=== PATIENT | male | born 1940 | race Caucasian/White ===

== ENCOUNTER 2023-09-18 16:50 | Observation (INO) ==
[2023-09-18 17:09] VITALS: TEMP 97.9
--- NOTE | 2023-09-18 18:13 | XRay Report ---
XR chest 1V portable CLINICAL HISTORY: Chest pain, nonspecific COMPARISON STUDY: Chest radiograph August 05, 2008. FINDINGS: Lung volumes are mildly diminished. No pneumothorax or pleural effusion is present. There i s mild enlargement of the cardiac silhouette. No consolidation is present. There is no evidence for p ulmonary edema. A small hiatal hernia is present. IMPRESSION: No acute cardiopulmonary findings. ACT 112: Negative or not required by law. Electronically signed by: Silver Garcia M.D. 09/18/2023 6:12 PM
[2023-09-18 18:20] LABS: Basophils # (auto) 0.02 K/uL (0.00-0.20); Basophils % (auto) 0.3 %; Eosinophils # (auto) 0.15 K/uL (0.00-0.50); Eosinophils % (auto) 2.5 %; Hematocrit (blood only) 43.5 % (42.0-52.0); Hemoglobin 14.8 g/dl (14.0-18.0); Immature Granulocytes # (auto) 0.01 K/uL (0.01-0.20); Immature Granulocytes % (auto) 0.2 %; Lymphocytes # (auto) 0.94 K/uL (1.20-3.40); Lymphocytes % (auto) 15.6 %; Mean Corpuscular Hemoglobin 30.8 pg (25.0-34.0); Mean Corpuscular Volume 90.6 fL (80.0-100.0); Mean Platelet Volume 9.3 fL (9.4-12.4); Neutrophils % (auto) 71.4 %; Platelet Count 297 K/uL (130-400); RDW Coefficient of Variation 12.7 % (11.5-14.5); White Blood Count 6.02 K/ul (4.8-10.8)
[2023-09-18 18:35] LABS: INR 0.9 (0.9-1.1); Partial Thromboplastin Ratio 0.9; Partial Thromboplastin Time 26 Seconds (21-31); Prothrombin Time 10.3 Seconds (9.0-12.0)
--- NOTE | 2023-09-18 18:45 | CT Scan Report ---
CT OF THE HEAD WITHOUT CONTRAST CLINICAL HISTORY: Dizzy COMPARISON STUDY: Head CT August 14, 2023. CT DOSE: 625.8 mGy.cm TECHNIQUE: Helical axial images of the head were obtained without IV contrast. Automated exposure con trol was utilized for the study. A dose lowering technique was utilized adhering to the principles o f ALARA. FINDINGS: No acute intracranial hemorrhage, midline shift or mass effect is present. The ventricular system is unremarkable. The basal cisterns are patent. No extra-axial collections are present. There are no findings to suggest acute dural sinus thrombosis or acute territorial infarct. No significant calvarial abnormalities are present. Visualized portions of the sinuses and mastoid air cells are esequiel ar. IMPRESSION: No acute intracranial findings. ACT 112: Negative or not required by law. Electronically signed by: Silver Garcia M.D. 09/18/2023 6:43 PM
[2023-09-18 19:05] LABS: Albumin Globulin Ratio 1.4 (0.9-2); Albumin Level 4.2 gm/dl (3.4-5.0); BUN Creatinine Ratio 16.7 (10-20); Bilirubin,Total 0.5 mg/dl (0.2-1.0); Calcium 9.1 mg/dl (8.6-10.3); Creatinine Clr Calc Pharmacy 56.4 ml/min; Est GFR (African American) 85.6 ml/min; Est GFR (Non-African American) 73.8 ml/min; Globulin 3.1 gm/dl (2.5-4.0); Magnesium 1.9 mg/dl (1.7-2.4); Potassium 4.1 mmol/L (3.5-5.1); Total Protein 7.3 gm/dl (6.0-8.3)
[2023-09-18 19:10] LABS: Troponin I High Sensitivity 16.2 pg/ml (0-20)
[2023-09-18 19:19] LABS: Thyroid Stimulating Hormone 0.598 uIu/ml (0.300-4.500)
--- NOTE | 2023-09-18 19:50 | Emergency Department Note ---
Impression & Plan Exertional shortness of breath, Elevated troponin, Lightheadedness ED Provider Note NAME: JACQUES SCHWARTZ AGE: 83 SEX: M : 1940 ARRIVES VIA: Walk-In INFORMANT: Patient ED PROVIDER(S): Amando Silva DO CHIEF COMPLAINT: shortness of breath HPI: Patient is an 83-year-old male who presents the ER for shortness of breath. He notes he had an issue earlier today around 12:00. He had paresthesias in his bilateral upper and lower extremities. This abated after about 1/2-hour. Then around 330 they are walking and he became significantly dyspneic on typical walk. Notes he had to stop on 2 separate occasions. Denies any chest pain, arm pain, or jaw pain. No belly pain. No nausea, vomiting, or diarrhea. He had recent right upper extremity surgery about 2 weeks ago and has been in a splint. Denies any swelling, tingling, or numbness. He had the stitches out today. ADDITIONAL HISTORY OBTAINED: Per HPI Chronic Medical/Social Conditions Affecting Care: Per HPI PAST MEDICAL HISTORY:See Below PAST SURGICAL HISTORY:See Below FAMILY HISTORY:See Below SOCIAL HISTORY:See Below HOME MEDICATIONS:See Below ALLERGIES:See Below VITALS:See Below PHYSICAL EXAMINATION: GENERAL: Sitting up in bed, alert, well appearing, well nourished, no distress, non-toxic EYE EXAM: normal conjunctiva. PERRL and EOM's grossly intact. OROPHARYNX: mucous membranes are moist NECK: supple, no nuchal rigidity, no adenopathy, non-tender LUNGS: Clear to auscultation. Normal chest wall mechanics HEART: no murmurs, S1 normal and S2 normal ABDOMEN: abdomen soft, non-tender, normo-active bowel sounds, no masses, no rebound or guarding. BACK: Back is symmetrical on inspection and there is no deformity, no midline tenderness, no CVA tenderness. SKIN: no rashes and no bruising UPPER EXTREMITIES: Right upper extremity in sling. LOWER EXTREMITIES: No pitting edema. Calves are equal bilaterally NEURO EXAM: Normal sensorium, cranial nerves II-XII grossly intact, normal speech, no gross weakness of arms, no gross weakness of legs. MEDICAL DECISION MAKING: Patient is an 83-year-old male who presents ER for above-stated complaint. IV was established blood was obtained. Labs show no significant leukocytosis or anemia. INR unremarkable. BMP along with LFTs bilirubin was unremarkable. Troponin trended up to 21. Lipase was normal. TSH unremarkable. Chest x-ray was negative. CT head and angio of the chest was negative. Was updated bedside and discussed with the hospitalist admitted for further workup. He was here for an extensive period of time as he was in the waiting room. Consults/Care Managements Discussions: Per [facility] Triage Nursing notes reviewed. Limited review of prior medical records performed Vital Signs: reviewed and remarkable for no significant abnormalities Differential diagnosis: Differential diagnoses includes but is not limited to pneumonia, bronchitis, COPD/Asthma exacerbation, pneumothorax, pulmonary embolism, congestive heart failure, acute coronary syndrome ER treatment provided: See below Diagnostics interpreted by me include EKG and cardiac monitoring as listed below: -Cardiac Monitoring: An order was placed for continuous cardiac monitoring. The monitor shows a rate of 80 with sinus rhythm. -ECG: Sinus rhythm rate 84 Normal axis No PVCs QTc 411 First-degree AV block -Laboratory studies:Interpreted by me as stated above in MDM and shown below. 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 Daughter No problems noted. Daughter No problems noted. Son No problems noted. Son No problems noted. Son No problems noted. 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 [employer] Feels Safe at Home: Yes Allergies Allergies Allergy/AdvReac Type Severity Reaction Status Date / Time TETANUS Allergy Unknown Unknown Uncoded 09/29/19 15:26 Home Meds Home Medications Medication Instructions Recorded Confirmed pantoprazole 20 mg tablet,delayed 20 mg PO DAILY 08/04/18 09/18/23 release (Protonix) mirtazapine 15 mg tablet 15 mg PO HS 09/05/18 09/18/23 avelumab 20 mg/mL intravenous See Rx Instructions .Route .COMPLEX 09/29/19 09/18/23 solution cholecalciferol (vitamin D3) 25 25 mcg PO DAILY 09/18/23 09/18/23 mcg (1,000 unit) capsule (Vitamin D3) losartan 25 mg tablet 25 mg PO DAILY 09/18/23 09/18/23 omega-3 fatty acids-vitamin E 1 cap PO DAILY 09/18/23 09/18/23 1,000 mg capsule rosuvastatin 5 mg tablet 5 mg PO DAILY 09/18/23 09/18/23 sildenafil 50 mg tablet 50 mg PO 1XD PRN Sexual Activity 09/18/23 09/18/23 Results & Data (ED) Vital Signs Vital Signs - 24 hr 09/18/23 17:03 09/18/23 17:13 09/18/23 18:55 Temperature 36.6 C Temperature Source Skin Pulse Rate 85 Pulse Rate [Right Finger] 88 Respiratory Rate 20 16 Respiratory Effort / Characteristics Non-Labored Spontaneous Non-Labored Spontaneous Non-Labored Respiratory Depth Normal Normal Normal Respiratory Pattern Regular Regular Blood Pressure 138/80 Blood Pressure [Right Arm] 139/90 Blood Pressure Mean 99 Blood Pressure Mean [Right Arm] 106 Pulse Oximetry 93 94 Oxygen Delivery Method Room Air Room Air Room Air Sepsis Recent Fever Within 48 Hours No Sepsis New/Unexplained Change in Mental Status N/A Sepsis Action Taken by Nursing No Action Required 09/18/23 20:31 09/18/23 20:31 09/18/23 20:32 Temperature Temperature Source Pulse Rate 78 73 Pulse Rate [Right Finger] Respiratory Rate 24 Respiratory Effort / Characteristics Respiratory Depth Respiratory Pattern Blood Pressure 145/95 H Blood Pressure [Right Arm] Blood Pressure Mean 110 Blood Pressure Mean [Right Arm] Pulse Oximetry Oxygen Delivery Method Sepsis Recent Fever Within 48 Hours Sepsis New/Unexplained Change in Mental Status Sepsis Action Taken by Nursing 09/18/23 20:32 09/18/23 20:40 09/18/23 20:48 Temperature Temperature Source Pulse Rate 72 71 Pulse Rate [Right Finger] Respiratory Rate 17 19 Respiratory Effort / Characteristics Respiratory Depth Respiratory Pattern Blood Pressure Blood Pressure [Right Arm] Blood Pressure Mean Blood Pressure Mean [Right Arm] Pulse Oximetry Oxygen Delivery Method Room Air Sepsis Recent Fever Within 48 Hours Sepsis New/Unexplained Change in Mental Status Sepsis Action Taken by Nursing 09/18/23 20:48 09/18/23 20:50 09/18/23 21:00 Temperature Temperature Source Pulse Rate 73 Pulse Rate [Right Finger] Respiratory Rate 17 Respiratory Effort / Characteristics Respiratory Depth Respiratory Pattern Blood Pressure 133/81 Blood Pressure [Right Arm] Blood Pressure Mean 95 Blood Pressure Mean [Right Arm] Pulse Oximetry Oxygen Delivery Method Room Air Sepsis Recent Fever Within 48 Hours Sepsis New/Unexplained Change in Mental Status Sepsis Action Taken by Nursing 09/18/23 21:00 09/18/23 21:10 09/18/23 21:20 Temperature Temperature Source Pulse Rate 64 63 68 Pulse Rate [Right Finger] Respiratory Rate 21 20 20 Respiratory Effort / Characteristics Respiratory Depth Respiratory Pattern Blood Pressure Blood Pressure [Right Arm] Blood Pressure Mean Blood Pressure Mean [Right Arm] Pulse Oximetry Oxygen Delivery Method Sepsis Recent Fever Within 48 Hours Sepsis New/Unexplained Change in Mental Status Sepsis Action Taken by Nursing 09/18/23 21:30 09/18/23 21:30 09/18/23 23:00 Temperature Temperature Source Pulse Rate 67 65 Pulse Rate [Right Finger] Respiratory Rate 17 20 Respiratory Effort / Characteristics Respiratory Depth Respiratory Pattern Blood Pressure 123/78 Blood Pressure [Right Arm] Blood Pressure Mean 91 Blood Pressure Mean [Right Arm] Pulse Oximetry Oxygen Delivery Method Sepsis Recent Fever Within 48 Hours Sepsis New/Unexplained Change in Mental Status Sepsis Action Taken by Nursing 09/18/23 23:42 09/19/23 00:00 09/19/23 01:00 Temperature Temperature Source Pulse Rate 80 72 67 Pulse Rate [Right Finger] Respiratory Rate 17 19 23 Respiratory Effort / Characteristics Respiratory Depth Respiratory Pattern Blood Pressure 154/88 H 150/80 H Blood Pressure [Right Arm] Blood Pressure Mean 110 103 Blood Pressure Mean [Right Arm] Pulse Oximetry 95 Oxygen Delivery Method Room Air Sepsis Recent Fever Within 48 Hours Sepsis New/Unexplained Change in Mental Status Sepsis Action Taken by Nursing Laboratory Data 09/18/23 17:56 09/18/23 17:56 Lab Results 09/18/23 09/18/23 Range/Units 17:56 20:23 WBC 6.02 (4.8-10.8) K/ul RBC 4.80 (4.70-6.10) M/uL Hgb 14.8 (14.0-18.0) g/dl Hct 43.5 (42.0-52.0) % MCV 90.6 (80.0-100.0) fL MCH 30.8 (25.0-34.0) pg MCHC 34.0 (32.0-36.0) g/dL RDW Std Deviation 42.0 (36.4-46.3) fL RDW Coeff of Senia 12.7 (11.5-14.5) % Plt Count 297 (130-400) K/uL MPV 9.3 L (9.4-12.4) fL Immature Gran % (Auto) 0.2 % Neut % (Auto) 71.4 % Lymph % (Auto) 15.6 % [place] % (Auto) 10.0 % Eos % (Auto) 2.5 % Baso % (Auto) 0.3 % Neut # (Auto) 4.30 (1.40-6.50) K/uL Lymph # (Auto) 0.94 L (1.20-3.40) K/uL [place] # (Auto) 0.60 H (0.11-0.59) K/uL Eos # (Auto) 0.15 (0.00-0.50) K/uL Baso # (Auto) 0.02 (0.00-0.20) K/uL Immature Gran # (Auto) 0.01 (0.01-0.20) K/uL PT 10.3 (9.0-12.0) Seconds INR 0.9 (0.9-1.1) APTT 26 (21-31) Seconds PTT Ratio 0.9 Sodium 139 (136-145) mmol/L Potassium 4.1 (3.5-5.1) mmol/L Chloride 107 (98-107) mmol/L Carbon Dioxide 25 (21-32) mmol/L Anion Gap 7 (3-11) BUN 16 (6-23) mg/dl Creatinine 0.96 (0.6-1.4) mg/dl Est Cr Clr Drug Dosing 56.4 ml/min Est GFR ( Amer) 85.6 ml/min Est GFR (Non-Af Amer) 73.8 ml/min BUN/Creatinine Ratio 16.7 (10-20) Glucose 116 H (70-99(Fasting)) mg/dl Calcium 9.1 (8.6-10.3) mg/dl Magnesium 1.9 (1.7-2.4) mg/dl Total Bilirubin 0.5 (0.2-1.0) mg/dl AST 17 (13-39) U/L ALT 12 (7-52) U/L Alkaline Phosphatase 117 H (34-104) U/L Troponin I High Sens 16.2 21.1 H (0-20) pg/ml Total Protein 7.3 (6.0-8.3) gm/dl Albumin 4.2 (3.4-5.0) gm/dl Globulin 3.1 (2.5-4.0) gm/dl Albumin/Globulin Ratio 1.4 (0.9-2) Lipase 37 (11-82) U/L TSH 0.598 (0.300-4.500) uIu/ml Administered Medications Discontinued Medications Ioversol (Optiray 320 125ml) 118 ml IV ONCE ONE Stop: 09/18/23 20:19 Last Admin: 09/18/23 20:18 Dose: 118 ml Documented By: [facility] Data Radiologist's Impression: Chest X-Ray 09/18/23 17:09 XR chest 1V portable CLINICAL HISTORY: Chest pain, nonspecific COMPARISON STUDY: Chest radiograph August 05, 2008. FINDINGS: Lung volumes are mildly diminished. No pneumothorax or pleural effusion is present. There is mild enlargement of the cardiac silhouette. No consolidation is present. There is no evidence for pulmonary edema. A small hiatal hernia is present. IMPRESSION: No acute cardiopulmonary findings. ACT 112: Negative or not required by law. Electronically signed by: Silver Garcia M.D. 09/18/2023 6:[address] 09/18/23 17:12 CT OF THE HEAD WITHOUT CONTRAST CLINICAL HISTORY: Dizzy COMPARISON STUDY: Head CT August 14, 2023. CT DOSE: 625.8 mGy.cm TECHNIQUE: Helical axial images of the head were obtained without IV contrast. Automated exposure control was utilized for the study. A dose lowering technique was utilized adhering to the principles of ALARA. FINDINGS: No acute intracranial hemorrhage, midline shift or mass effect is present. The ventricular system is unremarkable. The basal cisterns are patent. No extra-axial collections are present. There are no findings to suggest acute dural sinus thrombosis or acute territorial infarct. No significant calvarial abnormalities are present. Visualized portions of the sinuses and mastoid air cells are clear. IMPRESSION: No acute intracranial findings. ACT 112: Negative or not required by law. Electronically signed by: Silver Garcia M.D. 09/18/2023 6:43 PM Chest CTA 09/18/23 19:46 Exam(s): CTA CHEST IV Amt: 118 cc opti 320 EXAM: CT Angiography Chest With Intravenous Contrast CLINICAL HISTORY: Reason for exam: sob post op. TECHNIQUE: Axial computed tomographic angiography images of the chest with intravenous contrast. CTDI is 22.4 mGy and DLP is 801.82 mGy-cm. Automated exposure control was utilized for the study. A dose lowering technique was utilized adhering to the principles of ALARA. MIP reconstructed images were created and reviewed. COMPARISON: No relevant prior studies available. FINDINGS: Pulmonary arteries: Unremarkable. No pulmonary embolism. Aorta: Atherosclerotic changes of the aorta. No thoracic aortic aneurysm. Lungs: Unremarkable. No mass. No consolidation. Pleural space: Unremarkable. No significant effusion. No pneumothorax. Heart: Unremarkable. No cardiomegaly. No significant pericardial effusion. No evidence of RV dysfunction. Bones/joints: Degenerative changes of the spine. No acute fracture. No dislocation. Soft tissues: Unremarkable. Lymph nodes: Unremarkable. No enlarged lymph nodes. Gallbladder and bile ducts: Cholecystectomy. IMPRESSION: No acute findings in the visualized arteries of the chest. Electronically signed by: Marquez Reed MD 09/18/23 20:53 PM Discharge Plan Visit Data Chief Complaint: Shortness of Breath/Dyspnea Stated Complaint: LIGHTHEADED, TINGLING ARMS AND LEGS, SOB ED Provider: Amando Silva Discharge Problem: Exertional shortness of breath, Elevated troponin, Lightheadedness Forms Stand Alone Forms: [facility] Prescriptions Prescriptions: No Action pantoprazole [Protonix] 20 mg tablet,delayed release (DR/EC) 20 mg PO DAILY avelumab 20 mg/mL solution See Rx Instructions .ROUTE .COMPLEX Rx Instructions: Patient states he receives injection every 2 weeks mirtazapine 15 mg Tablet 15 mg PO HS sildenafil 50 mg tablet 50 mg PO 1XD PRN (Reason: Sexual Activity) losartan 25 mg tablet 25 mg PO DAILY rosuvastatin 5 mg tablet 5 mg PO DAILY cholecalciferol (vitamin D3) [Vitamin D3] 25 mcg (1,000 unit) Capsule 25 mcg PO DAILY Fish Oil 1,000 mg Capsule 1 cap PO DAILY Referrals Referrals: Alex Prater MD [Primary Care Provider] - Discharge Problem:
[2023-09-18] MEDS: OPTIRAY 320 125ml IV ONE (20:18)
--- NOTE | 2023-09-18 20:54 | CT Scan Report ---
Exam(s): CTA CHEST IV Amt: 118 cc opti 320 EXAM: CT Angiography Chest With Intravenous Contrast CLINICAL HISTORY: Reason for exam: sob post op. TECHNIQUE: Axial computed tomographic angiography images of the chest with intravenous contrast. CTDI is 22.4 mGy and DLP is 801.82 mGy-cm. Automated exposure control was utilized for the study. A dose lowering technique was utilized adhering to the principles of ALARA. MIP reconstructed images were created and reviewed. COMPARISON: No relevant prior studies available. FINDINGS: Pulmonary arteries: Unremarkable. No pulmonary embolism. Aorta: Atherosclerotic changes of the aorta. No thoracic aortic aneurysm. Lungs: Unremarkable. No mass. No consolidation. Pleural space: Unremarkable. No significant effusion. No pneumothorax. Heart: Unremarkable. No cardiomegaly. No significant pericardial effusion. No evidence of RV dysfunction. Bones/joints: Degenerative changes of the spine. No acute fracture. No dislocation. Soft tissues: Unremarkable. Lymph nodes: Unremarkable. No enlarged lymph nodes. Gallbladder and bile ducts: Cholecystectomy. IMPRESSION: No acute findings in the visualized arteries of the chest. Electronically signed by: Marquez Reed MD 09/18/23 20:53 PM
--- NOTE | 2023-09-19 02:37 | History & Physical Report ---
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 Patient states in the morning around noon he was in the [employer] when he noticed some dizziness and tingling in his hands when he went back home. Later he went to the doctor's office to remove stitches of recent surgery on his right upper extremity. In the evening he tried to walk when he noticed dyspnea on exertion and had to stop couple of times when he decided to come to the hospital. Currently resting he is asymptomatic. Denies any chest pain. No fevers. No cough. No blurred vision. No runny nose or sore throat. No nausea. No abdominal pain. Normal bowel and bladder movements. Currently hemodynamically stable. Dyspnea on exertion Episode of dizziness No chest pain CTA chest scan and CT head are unremarkable Initial troponin 16 and repeat is 21 EKG no acute findings Currently asymptomatic Will follow serial cardiac enzymes and echo Will keep him n.p.o. Monitoring telemetry Consult cardiology in a.m. 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 Patient states in the morning around noon he was in the [employer] when he noticed some dizziness and tingling in his hands when he went back home. Later he went to the doctor's office to remove stitches of recent surgery on his right upper extremity. In the evening he tried to walk when he noticed dyspnea on exertion and had to stop couple of times when he decided to come to the hospital. Currently resting he is asymptomatic. Denies any chest pain. No fevers. No cough. No blurred vision. No runny nose or sore throat. No nausea. No abdominal pain. Normal bowel and bladder movements. Currently hemodynamically stable. Past medical history. As mentioned above Past surgical history. Colonoscopy. EGD. Laparoscopic cholecystectomy. Needlepoint biopsy of prostate. Inguinal hernia repair. Social history. . Quit smoking 2001. Smoked half a pack a day for 20 years. No alcohol use. No drug use. Family history. Father had pneumonia. Mother had cancer. Allergies Allergy/AdvReac Type Severity Reaction Status Date / Time TETANUS Allergy Unknown Unknown Uncoded 09/29/19 15:26 Home Medications Medication Instructions Recorded Confirmed Type pantoprazole 20 mg tablet,delayed 20 mg PO DAILY 08/04/18 09/18/23 History release (Protonix) mirtazapine 15 mg tablet 15 mg PO HS 09/05/18 09/18/23 History avelumab 20 mg/mL intravenous See Rx Instructions .Route .COMPLEX 09/29/19 09/18/23 History solution cholecalciferol (vitamin D3) 25 25 mcg PO DAILY 09/18/23 09/18/23 History mcg (1,000 unit) capsule (Vitamin D3) losartan 25 mg tablet 25 mg PO DAILY 09/18/23 09/18/23 History omega-3 fatty acids-vitamin E 1 cap PO DAILY 09/18/23 09/18/23 History 1,000 mg capsule rosuvastatin 5 mg tablet 5 mg PO DAILY 09/18/23 09/18/23 History sildenafil 50 mg tablet 50 mg PO 1XD PRN Sexual Activity 09/18/23 09/18/23 History Past Med/Surg History Medical History (Updated 09/19/23 @ 01:21 by Amando Silva DO) History of brachytherapy 2012 at [facility] Zainab cell carcinoma Right Flank Hyperlipemia GERD (gastroesophageal reflux disease) Benign neoplasm of colon Ascending aortic aneurysm Allergic rhinitis Surgical History S/P cholecystectomy Status post Mohs surgery 2 surgeries on top of head History of back surgery 1994 H/O hernia repair Family History Father , age 78 Pneumonia Mother , age 79 Lymphoma Sister No problems noted. Daughter No problems noted. Daughter No problems noted. Son No problems noted. Son No problems noted. Son No problems noted. 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 ENT- oropharynx clear Neck- supple, no JVD. Lungs- clear to auscultation no wheezing or crackles. Heart- regular rhythm; no murmur, no gallop. Abdomen- normal bowel sounds, soft, nontender, no distension Extremities- no pretibial edema, no erythema seen. Neuro- alert, oriented PERRL, no facial palsy; no dysarthria; moves extremities. Results & Data Results & Data Vital Signs (Past 12 Hours) Vital Signs Temp Pulse Pulse Resp BP BP Pulse Ox 09/19/23 02:11 63 09/19/23 01:00 67 23 09/19/23 00:00 72 19 150/80 H 09/18/23 23:42 80 17 154/88 H 95 09/18/23 23:00 65 20 09/18/23 21:30 67 17 09/18/23 21:30 123/78 09/18/23 21:20 68 20 09/18/23 21:10 63 20 09/18/23 21:00 64 21 09/18/23 21:00 133/81 09/18/23 20:50 73 17 09/18/23 20:48 09/18/23 20:48 09/18/23 20:40 71 19 09/18/23 20:32 72 17 09/18/23 20:32 145/95 H 09/18/23 20:31 73 09/18/23 20:31 78 24 09/18/23 18:55 88 16 139/90 94 09/18/23 17:13 09/18/23 17:03 36.6 C 85 20 138/80 93 O2 Del Method 09/19/23 02:11 09/19/23 01:00 09/19/23 00:00 09/18/23 23:42 Room Air 09/18/23 23:00 09/18/23 21:30 09/18/23 21:30 09/18/23 21:20 09/18/23 21:10 09/18/23 21:00 09/18/23 21:00 09/18/23 20:50 09/18/23 20:48 Room Air 09/18/23 20:48 Room Air 09/18/23 20:40 09/18/23 20:32 09/18/23 20:32 09/18/23 20:31 09/18/23 20:31 09/18/23 18:55 Room Air 09/18/23 17:13 Room Air 09/18/23 17:03 Room Air Diagnostic Findings Laboratory Results WBC 6.02 K/ul (4.8-10.8) 09/18/23 17:56 RBC 4.80 M/uL (4.70-6.10) 09/18/23 17:56 Hgb 14.8 g/dl (14.0-18.0) 09/18/23 17:56 Hct 43.5 % (42.0-52.0) 09/18/23 17:56 MCV 90.6 fL (80.0-100.0) 09/18/23 17:56 MCH 30.8 pg (25.0-34.0) 09/18/23 17:56 MCHC 34.0 g/dL (32.0-36.0) 09/18/23 17:56 RDW Std Deviation 42.0 fL (36.4-46.3) 09/18/23 17:56 RDW Coeff of Senia 12.7 % (11.5-14.5) 09/18/23 17:56 Plt Count 297 K/uL (130-400) 09/18/23 17:56 MPV 9.3 fL (9.4-12.4) L 09/18/23 17:56 Immature Gran % (Auto) 0.2 % 09/18/23 17:56 Neut % (Auto) 71.4 % 09/18/23 17:56 Lymph % (Auto) 15.6 % 09/18/23 17:56 Spink % (Auto) 10.0 % 09/18/23 17:56 Eos % (Auto) 2.5 % 09/18/23 17:56 Baso % (Auto) 0.3 % 09/18/23 17:56 Neut # (Auto) 4.30 K/uL (1.40-6.50) 09/18/23 17:56 Lymph # (Auto) 0.94 K/uL (1.20-3.40) L 09/18/23 17:56 Spink # (Auto) 0.60 K/uL (0.11-0.59) H 09/18/23 17:56 Eos # (Auto) 0.15 K/uL (0.00-0.50) 09/18/23 17:56 Baso # (Auto) 0.02 K/uL (0.00-0.20) 09/18/23 17:56 Immature Gran # (Auto) 0.01 K/uL (0.01-0.20) 09/18/23 17:56 PT 10.3 Seconds (9.0-12.0) 09/18/23 17:56 INR 0.9 (0.9-1.1) 09/18/23 17:56 APTT 26 Seconds (21-31) 09/18/23 17:56 PTT Ratio 0.9 09/18/23 17:56 Sodium 139 mmol/L (136-145) 09/18/23 17:56 Potassium 4.1 mmol/L (3.5-5.1) 09/18/23 17:56 Chloride 107 mmol/L (98-107) 09/18/23 17:56 Carbon Dioxide 25 mmol/L (21-32) 09/18/23 17:56 Anion Gap 7 (3-11) 09/18/23 17:56 BUN 16 mg/dl (6-23) 09/18/23 17:56 Creatinine 0.96 mg/dl (0.6-1.4) 09/18/23 17:56 Est Cr Clr Drug Dosing 56.4 ml/min 09/18/23 17:56 Est GFR ( Amer) 85.6 ml/min 09/18/23 17:56 Est GFR (Non-Af Amer) 73.8 ml/min 09/18/23 17:56 BUN/Creatinine Ratio 16.7 (10-20) 09/18/23 17:56 Glucose 116 mg/dl (70-99(Fasting)) H 09/18/23 17:56 Calcium 9.1 mg/dl (8.6-10.3) 09/18/23 17:56 Magnesium 1.9 mg/dl (1.7-2.4) 09/18/23 17:56 Total Bilirubin 0.5 mg/dl (0.2-1.0) 09/18/23 17:56 AST 17 U/L (13-39) 09/18/23 17:56 ALT 12 U/L (7-52) 09/18/23 17:56 Alkaline Phosphatase 117 U/L (34-104) H 09/18/23 17:56 Troponin I High Sens 21.1 pg/ml (0-20) H 09/18/23 20:23 Total Protein 7.3 gm/dl (6.0-8.3) 09/18/23 17:56 Albumin 4.2 gm/dl (3.4-5.0) 09/18/23 17:56 Globulin 3.1 gm/dl (2.5-4.0) 09/18/23 17:56 Albumin/Globulin Ratio 1.4 (0.9-2) 09/18/23 17:56 Lipase 37 U/L (11-82) 09/18/23 17:56 TSH 0.598 uIu/ml (0.300-4.500) 09/18/23 17:56 Impressions Chest X-Ray 09/18/23 17:09 XR chest 1V portable CLINICAL HISTORY: Chest pain, nonspecific COMPARISON STUDY: Chest radiograph August 05, 2008. FINDINGS: Lung volumes are mildly diminished. No pneumothorax or pleural effusion is present. There is mild enlargement of the cardiac silhouette. No consolidation is present. There is no evidence for pulmonary edema. A small hiatal hernia is present. IMPRESSION: No acute cardiopulmonary findings. ACT 112: Negative or not required by law. Electronically signed by: Silver Garcia M.D. 09/18/2023 6:[address] 09/18/23 17:12 CT OF THE HEAD WITHOUT CONTRAST CLINICAL HISTORY: Dizzy COMPARISON STUDY: Head CT August 14, 2023. CT DOSE: 625.8 mGy.cm TECHNIQUE: Helical axial images of the head were obtained without IV contrast. Automated exposure control was utilized for the study. A dose lowering technique was utilized adhering to the principles of ALARA. FINDINGS: No acute intracranial hemorrhage, midline shift or mass effect is present. The ventricular system is unremarkable. The basal cisterns are patent. No extra-axial collections are present. There are no findings to suggest acute dural sinus thrombosis or acute territorial infarct. No significant calvarial abnormalities are present. Visualized portions of the sinuses and mastoid air cells are clear. IMPRESSION: No acute intracranial findings. ACT 112: Negative or not required by law. Electronically signed by: Silver Garcia M.D. 09/18/2023 6:43 PM Chest CTA 09/18/23 19:46 Exam(s): CTA CHEST IV Amt: 118 cc opti 320 EXAM: CT Angiography Chest With Intravenous Contrast CLINICAL HISTORY: Reason for exam: sob post op. TECHNIQUE: Axial computed tomographic angiography images of the chest with intravenous contrast. CTDI is 22.4 mGy and DLP is 801.82 mGy-cm. Automated exposure control was utilized for the study. A dose lowering technique was utilized adhering to the principles of ALARA. MIP reconstructed images were created and reviewed. COMPARISON: No relevant prior studies available. FINDINGS: Pulmonary arteries: Unremarkable. No pulmonary embolism. Aorta: Atherosclerotic changes of the aorta. No thoracic aortic aneurysm. Lungs: Unremarkable. No mass. No consolidation. Pleural space: Unremarkable. No significant effusion. No pneumothorax. Heart: Unremarkable. No cardiomegaly. No significant pericardial effusion. No evidence of RV dysfunction. Bones/joints: Degenerative changes of the spine. No acute fracture. No dislocation. Soft tissues: Unremarkable. Lymph nodes: Unremarkable. No enlarged lymph nodes. Gallbladder and bile ducts: Cholecystectomy. IMPRESSION: No acute findings in the visualized arteries of the chest. Electronically signed by: Marquez Reed MD 09/18/23 20:53 PM ECG Additional Comments: ECG. Sinus rhythm with marked sinus arrhythmia with first-degree AV block at rate of 84. Nonspecific T wave abnormalities. Code Status & VTE Plan VTE Prophylaxis Plan VTE Prophylaxis will be ordered: Yes
[2023-09-19] MEDS: ASPIRIN CHEW 324 MG PO STA (02:40)
[2023-09-19] MEDS ORDERED: ACETAMINOPHEN 325 MG TAB PO PRN (04:07)
[2023-09-19] MEDS ORDERED: NITROGLYCERIN SL 0.4 MG/TAB TAB SL PRN (04:07)
[2023-09-19] MEDS ORDERED: POLYETHYLENE (MIRALAX) 17 GM PACK PO PRN (04:07)
[2023-09-19 05:53] LABS: Basophils # (auto) 0.03 K/uL (0.00-0.20); Basophils % (auto) 0.5 %; Eosinophils # (auto) 0.15 K/uL (0.00-0.50); Eosinophils % (auto) 2.3 %; Hematocrit (blood only) 40.5 % (42.0-52.0); Hemoglobin 13.5 g/dl (14.0-18.0); Immature Granulocytes # (auto) 0.01 K/uL (0.01-0.20); Immature Granulocytes % (auto) 0.2 %; Lymphocytes # (auto) 1.17 K/uL (1.20-3.40); Lymphocytes % (auto) 18.3 %; Mean Corpuscular Hemoglobin 30.3 pg (25.0-34.0); Mean Corpuscular Hgb Conc 33.3 g/dL (32.0-36.0); Mean Corpuscular Volume 90.8 fL (80.0-100.0); Mean Platelet Volume 9.2 fL (9.4-12.4); Monocytes # (auto) 0.75 K/uL (0.11-0.59); Monocytes % (auto) 11.7 %; Platelet Count 260 K/uL (130-400); RDW Coefficient of Variation 12.8 % (11.5-14.5); RDW Standard Deviation 42.2 fL (36.4-46.3); Red Blood Count 4.46 M/uL (4.70-6.10); White Blood Count 6.41 K/ul (4.8-10.8)
[2023-09-19 06:01] LABS: BUN Creatinine Ratio 19.5 (10-20); Calcium 8.4 mg/dl (8.6-10.3); Creatinine Clr Calc Pharmacy 62.3 ml/min; Est GFR (African American) 93.8 ml/min; Est GFR (Non-African American) 80.9 ml/min; Magnesium 1.9 mg/dl (1.7-2.4); Potassium 3.8 mmol/L (3.5-5.1)
[2023-09-19 06:08] LABS: Troponin I High Sensitivity 18.9 pg/ml (0-20)
[2023-09-19] MEDS: PANTOprazole 40 MG TAB PO SCH (08:46)
[2023-09-19] MEDS: LOSARTAN POTASSIUM 25 MG TAB PO SCH (08:46)
[2023-09-19] MEDS: ROSUVASTATIN CALCIUM 5 MG TAB PO SCH (08:46)
[2023-09-19] MEDS: CHOLECALCIFEROL 25 MCG (1000 UNITS) TAB PO SCH (08:46)
--- NOTE | 2023-09-19 10:41 | Cardiology Consultation ---
Date of Consultation September 19, 2023 Assessment & Plan (1) Exertional shortness of breath: (2) Lightheadedness: Patient seen in cardiology consultation for an episode of exertional dyspnea prompting him to stop his walk 2 times yesterday. He underwent a CT angiogram in the emergency room which is negative for pulmonary embolism. Echocardiogram reveals normal biventricular chamber size and systolic function, with no regional wall motion abnormalities of the left ventricle. Patient has had serial high-sensitivity troponin measurements of 16.2, 21.1, and then 18.9 PG per mL. The upper limit of normal is 20 PG per mL and therefore the second measurement was just mildly elevated. EKG without acute ischemic changes, but the first-degree AV block noted on the initial EKG is consistent with underlying conduction system disease. The [place] interval was just over 300 ms, and has improved to 200 ms today. Patient with transient lightheadedness yesterday before the dyspnea, neither symptom has persisted at present. He demonstrated ability to walk in the emergency department well. Recommend proceeding with an exercise stress echocardiogram. He has a few weeks removed from his recent right arm surgery, but I do not think this will interfere with the stress test and will be cautious to not have him do anything that would result in an injury and postsurgical setback. Patient to continue losartan and rosuvastatin. History of Present Illness Attending Physician: Ivette Rea MD History of Present Illness Mr Etienne is an 83 year old male seen in cardiology consultation per the request of Dr Bowling for the evaluation of shortness of breath. Patient seen in the emergency room, [facility], accompanied by his spouse, Radha. The patient has previously followed with Dr. Owen of our practice for cardiac risk factor counseling. He had been found to have coronary artery calcification on a CT scan performed for the evaluation of [place] cell carcinoma which was treated at the [facility]. He also has a history of hypertension. He is therefore on rosuvastatin and losartan. He had recently undergone surgery to his right arm / elbow for a tendon repair and has been doing well recovering for the last few weeks. Yesterday at noon he had an episode where he transiently felt lightheaded and had some numbness in his arms and legs. He was standing at the time and did not feel like he was definitely going to pass out in the sensation subsided. He then went and had his sutures removed from his arm and did well. At about 4:00 he went for a walk and had to stop on two occasions due to shortness of breath without associated chest discomfort. The patient then presented to the emergency room for further assessment. He notes feeling well. He has not had any symptoms overnight last night. Allergies Allergy/AdvReac Type Severity Reaction Status Date / Time TETANUS Allergy Unknown Unknown Uncoded 09/29/19 15:26 Home Medications Medication Instructions Recorded Confirmed Type pantoprazole 20 mg tablet,delayed 20 mg PO DAILY 08/04/18 09/18/23 History release (Protonix) mirtazapine 15 mg tablet 15 mg PO HS 09/05/18 09/18/23 History avelumab 20 mg/mL intravenous See Rx Instructions .Route .COMPLEX 09/29/19 History solution cholecalciferol (vitamin D3) 25 25 mcg PO DAILY 09/18/23 09/18/23 History mcg (1,000 unit) capsule (Vitamin D3) losartan 25 mg tablet 25 mg PO DAILY 09/18/23 09/18/23 History omega-3 fatty acids-vitamin E 1 cap PO DAILY 09/18/23 09/18/23 History 1,000 mg capsule rosuvastatin 5 mg tablet 5 mg PO DAILY 09/18/23 09/18/23 History sildenafil 50 mg tablet 50 mg PO 1XD PRN Sexual Activity 09/18/23 09/18/23 History Patient History Medical History History of brachytherapy 2012 at [facility] [place] cell carcinoma Right Flank Hyperlipemia GERD (gastroesophageal reflux disease) Benign neoplasm of colon Ascending aortic aneurysm Allergic rhinitis Surgical History S/P cholecystectomy Status post Mohs surgery 2 surgeries on top of head History of back surgery 1994 H/O hernia repair Family History Father , age 78 Pneumonia Mother , age 79 Lymphoma Sister No problems noted. Daughter No problems noted. Daughter No problems noted. Son No problems noted. Son No problems noted. Son No problems noted. 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 [employer] Feels Safe at Home: Yes Safety Concerns: Feels Safe At This Time Review of Systems Review of Systems: All systems reviewed & are unremarkable except as noted in HPI & below Physical Exam Physical Exam: General: no acute distress and stated age Eyes: conjunctiva are pink and non-injected, sclera clear Neck: normal jugular venous pulse, no hepatojugular reflux Chest: normal shape and normal respiratory effort Lungs: clear to auscultation and percussion Cardiac Exam: - regular heart sounds, no murmurs, rubs, or gallops, no jugular venous distention Abdomen: abdomen soft, non-tender, no abnormal masses and no hepatosplenomegaly Musculoskeletal: no gait disturbance, no weakness, right arm is in a sling Extremities: no edema and no cyanosis Neuro:awake, conversant, follows commands, no focal motor deficits Psych: appropriate affect and insight. Results & Data Vital Signs (Past 12 Hours) Vital Signs Pulse Resp BP Pulse Ox Pulse Ox O2 Del Method O2 Del Method 09/19/23 07:37 74 09/19/23 06:00 70 14 128/72 09/19/23 05:00 73 13 134/85 09/19/23 04:07 96 Room Air 09/19/23 04:00 74 17 121/72 09/19/23 03:38 63 16 118/74 09/19/23 03:00 75 18 09/19/23 02:11 63 09/19/23 02:00 51 L 15 09/19/23 01:00 67 23 09/19/23 00:00 72 19 150/80 H 09/18/23 23:42 80 17 154/88 H 95 Room Air 09/18/23 23:00 65 20 Laboratory Results Cardiac Enzymes 09/18/23 09/18/23 09/19/23 Range/Units 17:56 20:23 05:19 AST 17 (13-39) U/L Troponin I High Sens 16.2 21.1 H 18.9 (0-20) pg/ml Coagulation 09/18/23 Range/Units 17:56 PT 10.3 (9.0-12.0) Seconds APTT 26 (21-31) Seconds CBC 09/18/23 09/19/23 Range/Units 17:56 05:19 WBC 6.02 6.41 (4.8-10.8) K/ul RBC 4.80 4.46 L (4.70-6.10) M/uL Hgb 14.8 13.5 L (14.0-18.0) g/dl Hct 43.5 40.5 L (42.0-52.0) % Plt Count 297 260 (130-400) K/uL Neut # (Auto) 4.30 4.30 (1.40-6.50) K/uL Lymph # (Auto) 0.94 L 1.17 L (1.20-3.40) K/uL Wood # (Auto) 0.60 H 0.75 H (0.11-0.59) K/uL Eos # (Auto) 0.15 0.15 (0.00-0.50) K/uL Baso # (Auto) 0.02 0.03 (0.00-0.20) K/uL Comprehensive Metabolic Panel 09/18/23 09/19/23 Range/Units 17:56 05:19 Sodium 139 138 (136-145) mmol/L Potassium 4.1 3.8 (3.5-5.1) mmol/L Chloride 107 106 (98-107) mmol/L Carbon Dioxide 25 26 (21-32) mmol/L BUN 16 17 (6-23) mg/dl Creatinine 0.96 0.87 (0.6-1.4) mg/dl Glucose 116 H 102 H (70-99(Fasting)) mg/dl Calcium 9.1 8.4 L (8.6-10.3) mg/dl AST 17 (13-39) U/L ALT 12 (7-52) U/L Alkaline Phosphatase 117 H (34-104) U/L Total Protein 7.3 (6.0-8.3) gm/dl Albumin 4.2 (3.4-5.0) gm/dl Intake and Output 09/18/23 09/19/23 09/19/23 22:59 06:59 14:59 Other: Weight 78.7 kg Weight Measurement Method Chair Scale Diagnostic Findings EKG performed on arrival on 09/16/2022 interpreted dependently revealed sinus rhythm 84 bpm with long first-degree AV block, [place] interval 306 ms. Negative axis noted in lead III. Normal ST segments. A repeat tracing was performed today 09/19/2023 revealing sinus rhythm at 71 bpm, ongoing first-degree AV block, [place] interval 200 ms, no significant repolarization abnormalities.
[2023-09-19 11:17] VITALS: RESP 18; O2SAT 96
--- NOTE | 2023-09-19 11:43 | Communication Note ---
Date of Service: September 19, 2023 Stress echo negative for ischemia. Noted first degree AV block and occasional nonconducted P waves consistent with blocked PACs or exclude underlying intermittent second-degree AV block. Symptoms not reproduced with treadmill exercise. Plan: Patient to be discharged with plans for outpatient Zio patch this afternoon, arrangements made in the office for it to be placed. Will plan for outpatient follow-up in 3 to 4 weeks so that we have the Zio patch results back. Stable for discharge from cardiac perspective . Xavier Nava, DO
--- NOTE | 2023-09-19 12:40 | Electrocardiogram Report ---
Test Reason : Blood Pressure : / mmHG Vent. Rate : 084 BPM Atrial Rate : 084 BPM P-R Int : 306 ms QRS Dur : 078 ms QT Int : 348 ms P-R-T Axes : 029 -07 063 degrees QTc Int : 411 ms Poor data quality, interpretation may be adversely affected Sinus rhythm with marked sinus arrhythmia with 1st degree A-V block Otherwise normal ECG When compared with ECG of 05-AUG-2008 13:59, [place] interval has increased Nonspecific T wave abnormality now evident in Lateral leads Confirmed by James Grimes ([id number]) on 09/19/2023 12:40:33 PM Referred By: REFERRED SELF Confirmed By:James Grimes
--- NOTE | 2023-09-19 12:51 | Discharge Summary ---
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 Patient states in the morning around noon he was in the [employer] when he noticed some dizziness and tingling in his hands when he went back home. Later he went to the doctor's office to remove stitches of recent surgery on his right upper extremity. In the evening he tried to walk when he noticed dyspnea on exertion and had to stop couple of times when he decided to come to the hospital. Currently resting he is asymptomatic. Denies any chest pain. No fevers. No cough. No blurred vision. No runny nose or sore throat. No nausea. No abdominal pain. Normal bowel and bladder movements. Currently hemodynamically stable. Past medical history. As mentioned above Past surgical history. Colonoscopy. EGD. Laparoscopic cholecystectomy. Needlepoint biopsy of prostate. Inguinal hernia repair. Social history. . Quit smoking 2001. Smoked half a pack a day for 20 years. No alcohol use. No drug use. Family history. Father had pneumonia. Mother had cancer. Admission Exam Per Admitting Provider General- Not in distress Head- atraumatic Eyes- PERRL. ENT- oropharynx clear Neck- supple, no JVD. Lungs- clear to auscultation no wheezing or crackles. Heart- regular rhythm; no murmur, no gallop. Abdomen- normal bowel sounds, soft, nontender, no distension Extremities- no pretibial edema, no erythema seen. Neuro- alert, oriented PERRL, no facial palsy; no dysarthria; moves extremities. Principal Dx & Hospital Course #1 = Principal Diagnosis (1) Exertional shortness of breath: Mr. 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 His EKG was notable for pinterval prolongation, which resolved on repeat. Stress ECHO was obtained which was negative for ischemia, but EKG tracing revealed concern for PACs v dropped beats questionable for a degree of heart block. Case was discussed with Cardiology. Plan to discharge for placement of zio patch this afternoon and close cardiology follow up. Patient agreed with plan. Patient was symptom free on discharge and denied any acute concerns. #Dyspnea on exertion #Episode of dizziness CTA chest scan and CT head are unremarkable Initial troponin 16 and repeat is 21, resolved EKG initially with PP interval >300, then with question of droppped beats v pac Cardiology evaluated -Zio patch upon discharge -Follow up with Cardiology #Hypertension On losartan #Hyperlipidemia On rosuvastatin #GERD On Protonix #Metastatic [place] cell carcinoma S/p radiation On chemo Follows with heme-onc Discharge Exam Constitutional WD/WN, vitals as above Respiratory normal respiratory effort, lungs clear to auscultation Cardiovascular RRR, no murmur, no edema Gastrointestinal (Abdomen) normal bowel sounds, soft, nontender, no hepatosplenomegaly Musculoskeletal no cyanosis or clubbing, extremities motor strength 5/5 Updated Medication List Medication Instructions Recorded Confirmed Type pantoprazole 20 mg tablet,delayed 20 mg PO DAILY 08/04/18 09/18/23 History release (Protonix) mirtazapine 15 mg tablet 15 mg PO HS 09/05/18 09/18/23 History avelumab 20 mg/mL intravenous See Rx Instructions .Route .COMPLEX 09/29/19 09/18/23 History solution cholecalciferol (vitamin D3) 25 25 mcg PO DAILY 09/18/23 09/18/23 History mcg (1,000 unit) capsule (Vitamin D3) losartan 25 mg tablet 25 mg PO DAILY 09/18/23 09/18/23 History omega-3 fatty acids-vitamin E 1 cap PO DAILY 09/18/23 09/18/23 History 1,000 mg capsule rosuvastatin 5 mg tablet 5 mg PO DAILY 09/18/23 09/18/23 History sildenafil 50 mg tablet 50 mg PO 1XD PRN Sexual Activity 09/18/23 09/18/23 History Hospital Stay Data Consultations 09/18/23 21:39 ED Decision to Admit Stat 09/19/23 08:00 Consult Cardiology Routine Diagnostic Imagining Performed 09/18/23 17:12 CT head/brain wo con Stat 09/18/23 19:46 CT angio chest PE protocol Stat Pending Results Patient Have Any Pending Studies at Discharge: No Discharge Instructions Given to Patient (Per Discharging Provider) You were admitted for shortness of breath while walking with a mild elevation of a marker of heart stress called troponin. You were evaluated by Cardiology who performed a stress test, which was not notable for any marker of acute blockage; however, your heart seemed to display abnormal beats. It is suggested you follow up with Cardiology for a Zio Patch to be placed to help determine what these irregularities may be and if they warrant intervention. Dr. Nava coordinated for Zio Patch placement this afternoon, 09/18. There were no changes to your medications Please follow up with your Primary Doctor and Cardiology. Total Time Total Time Spent Total Time Spent (In Minutes): 45
--- NOTE | 2023-09-19 13:11 | Electrocardiogram Report ---
Test Reason : Blood Pressure : / mmHG Vent. Rate : 071 BPM Atrial Rate : 071 BPM P-R Int : 202 ms QRS Dur : 086 ms QT Int : 408 ms P-R-T Axes : 012 -01 080 degrees QTc Int : 443 ms Normal sinus rhythm Nonspecific T wave abnormality Abnormal ECG When compared with ECG of 18-SEP-2023 18:01, UT interval has decreased Confirmed by James Grimes ([id number]) on 09/19/2023 1:11:14 PM Referred By: REFERRED SELF Confirmed By:James Grimes
[2023-09-19 13:23] VITALS: BP 139/90; PULSE 88
[2023-09-19] MEDS ORDERED: MIRTAZAPINE TAB 15 MG TAB PO SCH (21:00)
--- OUTSIDE RECORDS SUMMARY | 2023-09-20 03:02 | External Medical Summary ---
Author Name Unknown Address Unknown Organization [id number]:[facility] [address] [place] [id number] Laboratory Report Ordering Provider Test Date Status APURVA TIRADO 09/16/2023 07:18:27 Final Observation Date Value Abnormality Reference (Units ) Status BUN 09/16/2023 07:18:27 19 6-20 (mg/dL) Final Creatinine 09/16/2023 07:18:27 0.9 0.6-1.2 (mg/dL) Final Glomerular filtration rate/1.73 sq M.predicted [Volume Rate/Area] in Serum, Plasma or Blood by Creatinine-based formula (CKD-EPI) 09/16/2023 07:18:27 81 >=60 (mL/min) Final eGFR is calculated based on the CKD-EPI 2020 equation Sodium 09/16/2023 07:18:27 140 135-146 (m mol/L) Final Potassium 09/16/2023 07:18:27 4.3 3.5-5.1 (m mol/L) Final Cl 09/16/2023 07:18:27 103 98-107 (mm ol/L) Final CO2 09/16/2023 07:18:27 27 22-32 (mmo l/L) Final Anion gap 09/16/2023 07:18:27 10 7-15 (mmol /L) Final Glucose 09/16/2023 07:18:27 120 70-120 (mg /dL) Final Albumin 09/16/2023 07:18:27 4.2 3.8-5.0 (g /dL) Final AST (Aspartate aminotransferase) 09/16/2023 07:18:27 21 10-50 (U/L) Fin al Alk Phos 09/16/2023 07:18:27 135 Above high normal 35 -130 (U/L) Final Bilirubin, Total 09/16/2023 07:18:27 0.5 <=1 .2 (mg/dL) Final Calcium 09/16/2023 07:18:27 9.8 8.4-10.2 ( mg/dL) Final Protein 09/16/2023 07:18:27 7.7 6.0-8.3 (g /dL) Final ALT (Alanine aminotransferase) 09/16/2023 07:18:27 13 10-50 (U/L) Jose Ramon multani Performing Location [facility] [place] [address]
--- OUTSIDE RECORDS SUMMARY | 2023-09-20 03:02 | External Medical Summary | Summary of Care ---
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 Name Role Phone Alex Prater MD Primary Care Provider + Reason for Visit * Reason Comments Chemotherapy Chemo/recheck/review CT scan Encounter Details Date Type Department Care Team (Late st Contact Info) Description 09/02/2023 9:00 AM EDT Office Visit Hematology/Oncology Danay Frias [place] [address] [facility] [place] [address] Marshall Guaman MD [address] [facility] [place] [address] Encounter for antineoplastic chemotherapy*; 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 0 Active Vitamin D (Ergocalciferol) 50031 UNIT Oral Capsule Take by mouth . 0 Active Losartan Potassium 25 MG Oral Tablet (Cozaar)Indication s:HTN, goal below 140/90,Dyslipidemi a, goal LDL below 70,Enlarged aorta (HCC) Take 1 Tablet (25 mg) by mouth in the morning. 90 Tablet 3 05/01/2022 Active Vitamin B-12 1000 MCG Oral Tablet (Cyanocobalamin) Take 1 Tablet by mouth in the morning. 0 Active Sildenafil Citrate 50 MG Oral Tablet (Viagra)Indication s:Erectile dysfunction, unspecified erectile dysfunction type Take 1 Tablet by mouth daily as needed for Erectile Dysfunction. 1-4 hours before intercourse, no more than 1 dose in 24 hours. 10 Tablet 1 12/02/2022 Active Fluorometholone 0.1 % Ophthalmic Suspension (FML) Instill 1 Drop into the right eye in the morning and 1 Drop at noon and 1 Drop in the evening and 1 Drop before bedtime. 5 mL 3 12/31/2022 Active Pantoprazole Sodium 40 MG Oral Tablet Delayed Release (Protonix)Indicati ons:Gastroesophage al reflux disease without esophagitis Take 1 Tablet by mouth in the morning. 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), scalp/neck 9 Zainab cell carcinoma of trunk 08/05/2018 Gastroesophageal reflux disease without esophagi tis 04/03/2017 Thoracic aortic aneurysm without rupture 017 History of tobacco use 08/09/2016 History of basal cell carcinoma 11/01/2013 Overview: left faith 11/04 Hyperlipidemia 12/14/2009 documented as of this encounter (statuses as of 09/02/2023) Resolved Problems Problem Noted Date Diagnosed Date Resolved Date Dyslipidemia, goal to be determined 08/09/2016 09/27/2016 MALIGN NEOPL PROSTATE- Brachytherapy 11/21/2008 03/08/2022 ADVANCE DIRECTIVE INFORMATION 11/12/2007 09/09/2022 Overview: No, Advance Directive brochure given to patient. Allergic rhinitis 11/07/2003 09/08/2018 SCREEN MAL NEOP-RECTUM 04/18/200310/19 BPH without obstruction/lowe r urinary tract symptoms 04/18/2003 05/23/2009 Calculus of gallbladder with out mention of cholecystitis or obstruction 12/30/2001 04/03/2017 Tobacco use disorder 2001 022 Dyslipidemia, goal to be determined 2001 12/14/2009 ABDOMINAL PAIN, RIGHT UPPER QUADRANT 2001 11/14/2011 documented as of this encounter (statuses as of 09/02/2023) Immunizations Name Administration Dates Next Due COVID-19 mRNA, LNP-s, No Pre serve, 2-Dose Series (Baravento) 07/22/2020,07/01/2020 COVID-19, LNP-s, No Preserve , Leonardo-sucrose, Ages 12+ (Baravento) 10/02/2021,02/23/2021 COVID-19, MRNA-LNP, 23-24, P F, 50 MCG/0.5 mL, 12 YRS AND ABOVE, IM (MODERNA-Spikevax) 03/11/2023 Covid-19, Mrna, Lnp-s, Pf, B ivalent, 30 Mcg, IM, 12 yrs and above (Baravento) 04/03/2022 H1N1 2009 Influenza, IM 05/23/2009 PPD 02/23/2018,04/22/2017 Pneumococcal Conjugate Vacc, 13 Valent (Prevnar) 08/22/2015 Pneumococcal Polysaccharide PPV23 (Pneumovax) 10/20/2007 Season Influenza, Quad, PF, Adjuvanted, 65+ Yrs, IM (FLUAD) 03/05/2023,02/05/2020 Seasonal Influenza, PF, 6 M & above, IM , (FluLaval or Fluzone) 02/23/2018,04/03/2017 Seasonal Influenza, Quadriva lent Hd (Fluzone Hd) 02/13/2022,02/10/2021 Seasonal Influenza, Quadriva lent, No Preserve, IM 02/19/2016,04/24/2015 Seasonal Influenza, Split, I IV3, With Preserve, Inj 02/10/2014,02/12/2013,02/01/2012,03/25,02/16/2010,05/23/2009 Seasonal Influenza, Trivalen t, Adjuvanted, 65+ yrs 03/01/2019 TD - Tetanus/Diptheria (ADULT) 10/20/2007 TDAP (age 10 and older)(Boostrix) 04/22/2017 Varicella Zoster Vaccine (Adult) 11/14/2011 Zoster Vaccine Recombinant (Shingrix) 06/12/2020 ,04/11/2020 documented as of this encounter Social History Tobacco Use Types Packs/Day Years Used Date Smoking Tobacco: Former Cigarettes 0.5 20 0 05/26/1981 - 05/26/2001 Smokeless Tobacco: Never Tobacco Cessation:Counseling Given: Not Answered Alcohol Use Standard Drinks/Week Comments No 0 (1 standard drink = 0.6 oz pur e alcohol) PHQ-2 Answer Date Recorded PHQ Adult Total Score 0 03/08/2022 Hunger Vital Sign Answer Date Recorded Within the past 12 months, y ou worried that your food would run out before you got the money to buy more. Never true 09/10/19 Within the past 12 months, t he food you bought just didn't last and you didn't have money to get more. Never true 09/09/2022 Sex and Gender Information Value Date Recorded Sex Assigned at Male 03/17/2019 9:03 AM EDT Gender Identity Male 03/17/2019 9:03 AM EDT Sexual Orientation Choose not to disclose 2018 9:03 AM EDT Job Start Date Occupation Industry Not on file Not on file Not on file documented as of this encounter Last Filed Vital Signs Vital Sign Reading Time Taken Comments Blood Pressure 129/85 09/02/2023 8:56 AM EDT Pulse 66 09/02/2023 8:56 AM EDT Temperature 36.4 C (97.6 F) 09/02/2023 8:56 AM ED T Respiratory Rate - - Oxygen Saturation 95% 09/02/2023 8:56 AM EDT Inhaled Oxygen Concentration - - Weight 78.8 kg (173 lb 12.8 oz) 09/02/2023 8:56 AM EDT Height - - Body Mass Index 27.22 09/09/2022 2:20 PM EDT documented in this encounter Progress Notes * Marshall Guaman MD - 09/02/2023 9:09 AM EDT Images from the original note were not included. Outpatient Consult Note Data Source: Patient, Epic record. Data Source: Patient, [facility] record. 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 Current Treatment: Avelumab started on 08/16/2019 Previous Treatment: - He underwent excision of the mass on 08/07/2018 with sentinel lymph node biopsy from the inguinal area and iliac area. Pathology was consistent with Zainab cell carcinoma with positive deep margin and the right superficial inguinal sentinel lymph node biopsy and the right iliac sentinel lymph nodebiopsy was positive for metastatic most cell carcinoma. Patient has stage III disease T2 N1. - Radiation therapy Oncologic History : 83-year-old male who initially noticed a small palpable nodule on the right side of the flank sometime in mid May of 2018, and the mass increased in size with some pain within few weeks. He underwent MRI and the CT scan which shows that there is a 3.4 x 2 cm mass in the right flank area. Biopsyof the mass was done and was consistent with Zainab cell carcinoma. Patient subsequently went to [facility] in [place] and had a PET scan done which shows a hypermetabolic mass involvingthe skin and subcutaneous tissue of the right lower back consistent with the patient's primary malignancy. There was no evidence of metastatic disease. Patient then went to [facility] and had a workup done including PET scan which was negative for metastatic disease. He underwent excision of the mass on 08/07/2018 with sentinel lymph node biopsy from the inguinal area and iliac area. Pathology was consistent with Joliet cell carcinoma with positive deep margin and the right superficial inguinal sentinel lymph node biopsy and the right iliacsentinel lymph node biopsy is positive for metastatic most cell carcinoma. Patient has stage III disease T2 N1. A right superficial inguinal sentinel lymph node biopsy revealed metastatic zainab cellcarcinoma without extracapsular extension, right iliac sentinel lymph node biopsy revealed metastatic zainab cell carcinoma. After the operation patient also had some wound problem and it was open. Currently patient is receiving radiation therapy to the flank area and to the inguinal area. Patient referred to me for further management. Past medical history is also significant for T1c adenocarcinoma of the prostate was diagnosed 2008 with pre biopsy PSA of 15 ng/ml. The tumor involved specimen from one out of 13 areas, jenny grade7 and tumor volume of 20%. He has opted for brachytherapy and will prefer to have it done locally. Patient denies any smoking or drinking. Family history significant for the mother was diagnosed of lymphoma Patient had CT scan of chest (on 06/22/2019. The reason of CT scan was because the insurance company refused to pay for PET scan. The CT scan shows stable postoperative change in the right flank but that there is a new omental nodule of 1.4 cm anterior to the left lobe of liver. This is of indeterminate significance. 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 Patient was referred to Medical Oncology Dr. Sagastume at [facility]. His case supposed to discuss in the tumor board for further management He had follow-up CT scan done on 11/02/2019 and shows Abdomen/pelvis: 1. No new enlarged abdominal or pelvic lymph nodes. 2. The previously seen subcutaneous nodule in the right lateral abdominal wall has resolved. 3. The previously seen peritoneal nodule anterior to the left hepatic lobe has resolved. No additional peritoneal nodules noted on this exam. Chest: 1. Multiple small mediastinal and hilar lymph nodes, minimally increased in size since the prior chest CT dated 08/11/2019. Senior Litigation Paralegal lymph nodes are measured above. Continued attention on the follow up studies suggested. 2. A new small nodule versus intrapulmonary lymph node in the medial right upper lobe measuring 0.3cm. Continued attention on the follow up studies suggested 80-year-old male who initially noticed a small palpable nodule on the right side of the flank sometime in mid May of 2018, and the mass increased in size with some pain within few weeks. He underwent MRI and the CT scan which shows that there is a 3.4 x 2 cm mass in the right flank area. Biopsyof the mass was done and was consistent with Joliet cell carcinoma. Patient subsequently went to [facility] in [place] and had a PET scan done which shows a hypermetabolic mass involvingthe skin and subcutaneous tissue of the right lower back consistent with the patient's primary malignancy. There was no evidence of metastatic disease. Patient then went to [facility] and had a workup done including PET scan which was negative for metastatic disease. He underwent excision of the mass on 08/07/2018 with sentinel lymph node biopsy from the inguinal area and iliac area. Pathology was consistent with Joliet cell carcinoma with positive deep margin and the right superficial inguinal sentinel lymph node biopsy and the right iliacsentinel lymph node biopsy is positive for metastatic most cell carcinoma. Patient has stage III disease T2 N1. A right superficial inguinal sentinel lymph node biopsy revealed metastatic zainab cellcarcinoma without extracapsular extension, right iliac sentinel lymph node biopsy revealed metastatic zainab cell carcinoma. After the operation patient also had some wound problem and it was open. Currently patient is receiving radiation therapy to the flank area and to the inguinal area. Patient referred to me for further management. Past medical history is also significant for T1c adenocarcinoma of the prostate was diagnosed 2008 with pre biopsy PSA of 15 ng/ml. The tumor involved specimen from one out of 13 areas, jenny grade7 and tumor volume of 20%. He has opted for brachytherapy and will prefer to have it done locally. Patient denies any smoking or drinking. Family history significant for the mother was diagnosed of lymphoma Patient had CT scan of chest (on 06/22/2019. The reason of CT scan was because the insurance company refused to pay for PET scan. The CT scan shows stable postoperative change in the right flank but that there is a new omental nodule of 1.4 cm anterior to the left lobe of liver. This is of indeterminate significance. 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 Patient was referred to Medical Oncology Dr. Sagastume at [facility]. His case supposed to discuss in the tumor board for further management He had follow-up CT scan done on 11/02/2019 and shows Abdomen/pelvis: 1. No new enlarged abdominal or pelvic lymph nodes. 2. The previously seen subcutaneous nodule in the right lateral abdominal wall has resolved. 3. The previously seen peritoneal nodule anterior to the left hepatic lobe has resolved. No additional peritoneal nodules noted on this exam. Chest: 1. Multiple small mediastinal and hilar lymph nodes, minimally increased in size since the prior chest CT dated 08/11/2019. Senior Litigation Paralegal lymph nodes are measured above. Continued attention on the follow up studies suggested. 2. A new small nodule versus intrapulmonary lymph node in the medial right upper lobe measuring 0.3cm. Continued attention on the follow up studies suggested Interval History: He had a fall and hit the right elbow and right buttock area. Now he is feeling better. Patient denies any headache, dizziness, blurred vision, chest pain, shortness breath palpitation abdominal painor distention, bleeding, bruising, nausea, vomiting, fever, night sweats, weight loss, hematuria, hematochezia. LABS/IMAGING: Results for orders placed or performed in visit on 09/02/23 COMPREHENSIVE METABOLIC PANEL Result Value Ref Range BUN 21 (H) 6 - 20 mg/dL Creatinine 1.0 0.6 - 1.2 mg/dL Estimated Glomerular Filtration Rate 77 >=60 mL/min Sodium 140 135 - 146 mmol/L Potassium 4.1 3.5 - 5.1 mmol/L Chloride 102 98 - 107 mmol/L CO2 27 22 - 32 mmol/L Anion Gap 11 7 - 15 mmol/L Glucose 107 70 - 120 mg/dL Albumin 4.5 3.8 - 5.0 g/dL AST 22 10 - 50 U/L Alkaline Phosphatase 145 (H) 35 - 130 U/L Bilirubin, Total 0.7 <=1.2 mg/dL Calcium 9.8 8.4 - 10.2 mg/dL Protein 7.8 6.0 - 8.3 g/dL ALT 10 10 - 50 U/L CBC Result Value Ref Range WBC 5.52 4.00 - 10.80 K/uL RBC 5.04 4.50 - 5.25 M/uL HGB 15.4 14.0 - 16.8 g/dL HCT 47.3 40.0 - 48.4 % MCV 93.8 82.0 - 99.5 fL MCH 30.6 27.0 - 34.0 pg MCHC 32.6 32.0 - 36.0 g/dL RDW 13.3 11.5 - 15.5 % PLT 278 140 - 400 K/uL MPV 9.3 6.6 - 11.1 fL DIFFERENTIAL, AUTOMATED Result Value Ref Range WBC 5.52 4.00 - 10.80 K/uL Neutrophils % 59.4 40.0 - 75.0 % Lymphocytes % 20.8 18.0 - 42.0 % Monocytes % 14.9 (H) 1.0 - 11.0 % Eosinophils % 4.5 0.0 - 6.0 % Basophils % 0.4 0.0 - 2.0 % Absolute Neutrophils 3.28 1.80 - 7.70 K/uL Absolute Lymphocytes 1.15 1.00 - 4.80 K/ul Absolute Monocytes 0.82 0.00 - 1.10 K/uL Absolute Eosinophils 0.25 0.00 - 0.70 K/uL Absolute Basophils 0.02 0.00 - 0.20 K/uL *Note: Due to a large number of results and/or encounters for the requested time period, some results have not been displayed. A complete set of results can be found in Results Review. His blood counts are stable in acceptable range. Follow-up CT scans were done on 08/19/2023 which revealed a new soft tissue density mass at right lateral gluteal musculature, maybe posttraumatic or recurrent disease. Patient had a fall and this ismost likely traumatic. REVIEW OF SYSTEMS: General: No Fever, chills, night sweats, or weight loss. HEENT: No change in visual acuity, blurred or double vision. No epistaxis, facial pain, nasal discharge or change in hearing. Denies dysphagia, no muscosal ulceration, or sores noted. Cardiovascular: No chest pain, BORJA, or palpitations Respiratory: No shortness of breath, cough, hemoptysis, or pleuritic chest pain Gastrointestinal: No abdominal pain, nausea, vomiting, diarrhea, rectal pain or bleeding Genitourinary: Denies Hematuria or dysuria Musculoskeletal: Improving pain in the right buttock area Psychiatric: No vegetative signs of depression Endocrine: No symptoms of hypothyroidism or hyperglycemia Hematologic: No bleeding or lymph nodes noted As mentioned above, all of the systems were reviewed in full and are unremarkable. 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 Vitamin D (Ergocalciferol) 53752 UNIT Oral Capsule Take by mouth . Losartan Potassium 25 MG Oral Tablet (Cozaar) Take 1 Tablet (25 mg) by mouth in the morning. 90 Tablet 3 Vitamin B-12 1000 MCG Oral Tablet (Cyanocobalamin) Take 1 Tablet by mouth in the morning. Sildenafil Citrate 50 MG Oral Tablet (Viagra) Take 1 Tablet by mouth daily as needed for Erectile Dysfunction. 1-4 hours before intercourse, no more than 1 dose in 24 hours. 10 Tablet 1 Fluorometholone 0.1 % Ophthalmic Suspension (FML) Instill 1 Drop into the right eye in the morning and 1 Drop at noon and 1 Drop in the evening and 1 Drop before bedtime. 5 mL 3 Pantoprazole Sodium 40 MG Oral Tablet Delayed Release (Protonix) Take 1 Tablet by mouth in the morning. 90 Tablet 1 Rosuvastatin Calcium 5 MG Oral Tablet (Crestor) TAKE 1 TABLET BY MOUTH EVERY DAY 90 Tablet 3 No current facility-administered medications for this visit. Social History Tobacco Use Smoking status: Former Current packs/day: 0.00 Average packs/day: 0.5 packs/day for 20.0 years (10.0 ttl pk-yrs) Types: Cigarettes Start date: 05/26/1981 Quit date: 05/26/2001 Years since quittin.2 Smokeless tobacco: Never Vaping Use Vaping Use: Never used Substance Use Topics Alcohol use: No Drug use: No Review of patient's allergies indicates: No Known Allergies PHYSICAL EXAMINATION: General Appearance: Healthy appearing patient in no acute distress BP 129/85 (BP Site: Left Arm, BP Position: Sitting, BP Cuff Size: Regular) | Pulse 66 | Temp 36.4 C (97.6 F) (Tympanic) | Wt 78.8 kg (173 lb 12.8 oz) | SpO2 95% | BMI 27.22 kg/m | BSA 1.93 m Vitals reviewed. HEENT: No oral or pharyngeal masses, ulceration or thrush noted, no sinus tenderness. Neck is supple with no thyromegaly or JVD noted. Lymph Nodes: No lymphadenopathy noted in the occipital, pre and post auricular, cervical, supra andinfraclavicular, axillary, epitrochlear, inguinal, and popliteal region. Lungs/Thorax: Clear to auscultation, no accessory muscles of respiration being used. Heart: Regular rate and rhythm, normal S1, S2 Abdomen: Soft, nontender, bowel sounds present, no appreciable hepatosplenomegaly, no palpable masses Extremeties: Good pulses bilaterally, no peripheral edema. Skin: Normal skin tone with no rash, petechiae, ecchymosis noted. Musculoskeletal: No pain on palpation over bony prominence, no edema, no evidence of gout, no jointor bony deformity ASSESSMENT: 83-year-old male healthy with history of Zainab cell carcinoma was resected from right flank. Patient went to [facility] and had a workup done including PET scan which was negative for metastatic disease. He underwent excision of the mass with sentinel lymph node biopsy from the inguinal areaand iliac area. Pathology was consistent with Joliet cell carcinoma with positive deep margin and the right superficial inguinal sentinel lymph node and the right iliac sentinel lymph node biopsy were positive for metastatic most cell carcinoma. Patient had stage III disease T2 N1. He received radiation therapy tothe inguinal and the right flank area. He had follow-up CT scan done on 06/22/2019 which showed there is a new omental nodule anterior to the left lobe of the liver, size was 1.4 cm He also has a rise in the Joliet cell on protein from 209 to 905. 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 Patient was started on avelumab on 08/16/2019. He is doing well without any new symptoms of complain. He had a fall recently and had the right hip/buttock area in the arm. He is scheduled for surgery in the on sometime next week. On the follow-upCT scan there was a new density in the right buttock area most likely traumatic because of the fall. Overall clinically he is doing well without any new symptoms complain. Discussed with the patient about diagnosis reviewed all the available blood test and CT scan result with him. Discussed about the duration of the treatment. After discussion he decided to continue current treatment. PLAN: Continue current treatment. He will return clinic for follow-up in 6 weeks The patient voiced understanding of all of the above. All questions and concerns were addressed in an apparently satisfactory manner. Marshall Gauman MD (This note was completed using the dictation program Fluency Direct. As such, there may be misspellings, word substitutions, or other variations that should not change the essence of the clinical content of this encounter note. If there is need for further clarification, please direct questions to me.) documented in this encounter Nursing Notes * Cheyanne Dennis MED ASSIST - 09/02/2023 8:58 AM EDT Patient identifed by name and birthdate Do you have any concerns about pain management for today's visit? No Living Will or Advance Directive for Health Care as noted on the problem list. [facility] is a way you can talk to your provider on line through e-mail. Would you like to sign up? I can activate it for you? ALREADY ACTIVE Filed Vitals: 09/02/23 0856 BP: 129/85 Pulse: 66 Temp: 36.4 C (97.6 F) TempSrc: Tympanic SpO2: 95% Weight: 78.8 kg (173 lb 12.8 oz) Patient was instructed to not get up on the exam table/exam chair until directed and assisted by their provider; patient is to remain seated in the chair/ wheelchair/ exam table/ exam chair for fall prevention and safety reasons. Patient is aware to have assistance to step down off exam table/exam chair with personnel. Patient voiced full comprehension of instructions. documented in this encounter Plan of Treatment Upcoming Encounters Date Type Department Care Team (Late st Contact Info) Description 10/24/2023 9:15 AM EDT Office Visit Dermatology Danay Frias [place] [address] [facility] [place] [address] Alex Lassiter MD [address] [facility] [place] [id number] 03/01/2024 9:30 AM EDT Office Visit [facility] Eye [address] [address] Shilo Cuevas MD [address] [place] [address] Scheduled Procedures Name Priority Associated Diagnoses Date/Ti me COLONOSCOPY FLEXIBLE PROXIMA L DIAGNOSTIC Recall Personal history of colonic polyps Health Maintenance Due Date Last Done Comments Depression Screening 03/08/2023 03/08/2022 COLONOSCOPY-EVERY 5 YRS AGES 18-100 03/25/2024 03/25/2019, 03/25/2019, 08/19/2013, Additional history exists GFR 09/01/2024 09/02/2023, 07/25, 08/05/2023, Additional history exists Albumin/Creatinine Ratio 09/09/2025 09/09/2022 DTaP,Tdap,and Td Vaccines (2 - Td or Tdap) 04/22/2027 04/22/2017, 10/20/2007 Pneumococcal Vaccine: 65+ Years Completed 08/22/2015, 10/20/2007 Zoster Vaccines Completed 06/12/2020, 03/26, 11/14/2011 Influenza Vaccine (FLU shot) Completed 03/2023, 02/13/2022, 02/10/2021, Additional history exists COVID-19 Vaccine Completed 03/11/2023, 01/2022, 10/02/2021, Additional history exists GARDASIL-HPV IMMUNIZATION SERIES Aged Out No longer eligible based on patient's age to complete this topic Hepatitis B Aged Out No longer eligi ble based on patient's age to complete this topic MENINGOCOCCAL (MENACTRA/MENVEO) Aged Out No longer eligible based on patient's age to complete this topic documented as of this encounter Medical Devices Not on filedocumented as of this encounter Visit Diagnoses Diagnosis Encounter for antineoplastic chemotherapy- 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
--- OUTSIDE RECORDS SUMMARY | 2023-09-20 03:02 | External Medical Summary ---
Author Name Unknown Address Unknown Organization [id number]:[facility] [address] [place] [address] Laboratory Report Ordering Provider Test Date Status APURVA TIRADO 09/02/2023 08:16:40 Final Observation Date Value Abnormality Reference (Units ) Status BUN 09/02/2023 08:16:40 21 Above high normal 6-20 (mg/dL) Final Creatinine 09/02/2023 08:16:40 1.0 0.6-1.2 (mg/dL) Final Glomerular filtration rate/1.73 sq M.predicted [Volume Rate/Area] in Serum, Plasma or Blood by Creatinine-based formula (CKD-EPI) 09/02/2023 08:16:40 77 >=60 (mL/min) Final eGFR is calculated based on the CKD-EPI 2020 equation Sodium 09/02/2023 08:16:40 140 135-146 (m mol/L) Final Potassium 09/02/2023 08:16:40 4.1 3.5-5.1 (m mol/L) Final Cl 09/02/2023 08:16:40 102 98-107 (mm ol/L) Final CO2 09/02/2023 08:16:40 27 22-32 (mmo l/L) Final Anion gap 09/02/2023 08:16:40 11 7-15 (mmol /L) Final Glucose 09/02/2023 08:16:40 107 70-120 (mg /dL) Final Albumin 09/02/2023 08:16:40 4.5 3.8-5.0 (g /dL) Final AST (Aspartate aminotransferase) 09/02/2023 08:16:40 22 10-50 (U/L) Fin al Alk Phos 09/02/2023 08:16:40 145 Above high normal 35 -130 (U/L) Final Bilirubin, Total 09/02/2023 08:16:40 0.7 <=1 .2 (mg/dL) Final Calcium 09/02/2023 08:16:40 9.8 8.4-10.2 ( mg/dL) Final Protein 09/02/2023 08:16:40 7.8 6.0-8.3 (g /dL) Final ALT (Alanine aminotransferase) 09/02/2023 08:16:40 10 10-50 (U/L) Jose Ramon multani Performing Location [facility]- [facility] - [address] [place] [address]
--- OUTSIDE RECORDS SUMMARY | 2023-09-20 03:02 | External Medical Summary | Summary of Care ---
Author Name Unknown Organization [facility] Address [address] [facility] [address] Phone [phone] Care Team Providers Care Baked Goods Stock Clerk Name Role Phone Alex Prater MD Primary Care Provider + Encounter Details Date Type Department Care Team (Late st Contact Info) Description 09/14/2023 Orders Only Hematology/Oncology, [facility] [address] [facility] [place] [address] Marshall Guaman MD [address] [facility] [address] Allergies No known active allergiesdocumented as of this encounter (statuses as of 09/14/2023) Medications Medication Sig Dispensed Refills Start Date End Date Status Avelumab 200 MG/10ML Intravenous Solution (Bavencio) Administer intravenously 10 mg/kg once . 0 Active Vitamin D (Ergocalciferol) 08840 UNIT Oral Capsule Take by mouth . 0 Active Vitamin B-12 1000 MCG Oral Tablet (Cyanocobalamin) Take 1 Tablet by mouth in the morning. 0 Active Sildenafil Citrate 50 MG Oral Tablet (Viagra)Indication s:Erectile dysfunction, unspecified erectile dysfunction type Take 1 Tablet by mouth daily as needed for Erectile Dysfunction. 1-4 hours before intercourse, no more than 1 dose in 24 hours. 10 Tablet 1 12/02/2022 Active Additional Information Patient not taking.Reported on 09/11/2023 Fluorometholone 0.1 % Ophthalmic Suspension (FML) Instill [...] EVERY DAY 90 Tablet 3 08/18/2023 Active Losartan Potassium 25 MG Oral Tablet (Cozaar)Indication s:HTN, goal below 140/90,Dyslipidemi a, goal LDL below 70,Enlarged aorta (HCC) Take 1 Tablet by mouth in the morning. 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 Gastroesophageal reflux disease without esophagi tis 04/03/2017 Thoracic aortic aneurysm without rupture 017 History of tobacco use 08/09/2016 History of basal cell carcinoma 11/01/2013 Overview: left mandaeism 11/04 Hyperlipidemia 12/14/2009 documented as of this encounter (statuses as of 09/14/2023) Resolved Problems Problem Noted Date Diagnosed Date [...] as of this encounter (statuses as of 09/14/2023) Immunizations Name Administration Dates Next Due COVID-19 mRNA, LNP-s, No Pre serve, 2-Dose Series ([employer]) 07/22/2020,07/01/2020 COVID-19, LNP-s, No Preserve , Leonardo-sucrose, Ages 12+ (Pfizer) 10/02/2021,02/23/2021 COVID-19, MRNA-LNP, 23-24, P F, 50 MCG/0.5 mL, 12 YRS AND ABOVE, IM (MODERNA-Spikevax) 03/11/2023 Covid-19, Mrna, Lnp-s, Pf, B ivalent, 30 Mcg, IM, 12 yrs and above ([employer]) 04/03/2022 H1N1 2009 Influenza, IM 05/23/2009 PPD [...] 0 05/26/1981 - 05/26/2001 Smokeless Tobacco: Never Alcohol Use Standard Drinks/Week Comments No 0 (1 standard drink = 0.6 oz pur e alcohol) PHQ-2 Answer Date Recorded PHQ Adult Total Score 0 03/08/2022 Hunger Vital Sign Answer Date Recorded Within the past 12 months, y ou worried that your food would run out before you got the money to buy more. Never true 09/10/19 23 Within the past 12 months, t he [...] on file documented as of this encounter Plan of Treatment Upcoming Encounters Date Type Department Care Team (Late st Contact Info) Description 09/16/2023 7:10 AM EDT Laboratory Laboratory [facility] [place] [address] [place] [phone] [facility] Scenery [address] [facility] [place] [address] 09/16/2023 8:30 AM EDT Hem/Onc Treatment Hematology/Oncology Treatment, [place] [address] [place] [phone] [facility], Chair 9 Hem Onc [place] [address] [place] [address] 09/30/2023 7:20 AM EDT Laboratory Laboratory [facility] [place] [address] [place] [phone] [place], Lab Scenery [address] [facility] [place] [address] 09/30/2023 8:30 AM EDT [facility] [address] [facility] [place], [place] [phone] Altagracia, Chair 4 Hem Onc Scene 200 [facility] [place], [place] [address] 10/14/2023 7:40 AM EDT Laboratory Laboratory [facility] [place] [address] [place], [place] [phone] [place], Lab [facility] 200 [facility] [place], [place] [address] 10/14/2023 8:30 AM EDT Office Visit Hematology/Oncology [facility] [address] [facility] [place], [place] [phone] Marshall Guaman MD 200 [facility] [place], [place] [address] 10/14/2023 9:00 AM EDT [facility] 200 [facility], [place] [phone] Altagracia, Chair 3 Hem Onc [address] [place], [place] [address] 10/24/2023 9:15 AM EDT Office Visit Dermatology [facility] [place] 200 [facility] [place], [place] [address] Alex Lassiter MD 200 [facility] [place] [address] 03/01/2024 9:30 AM EDT Office Visit [facility] [address] [address] Shilo Cuevas MD [address] [place] [address] 04/29/2024 9:15 AM EST Office Visit Dermatology [facility] [place] 200 [facility] [place] [address] Alex Lassiter MD 200 [facility] [place] [address] Scheduled Procedures Name Priority Associated Diagnoses Date/Ti [...] Not on filedocumented as of this encounter Care Teams Baked Goods Stock Clerk Relationship Specialty Start Date End Date Alex Prater MD 200 [facility] [place] [address] PCP - General Internal Medicine 02/07/21 documented as of this encounter
--- OUTSIDE RECORDS SUMMARY | 2023-09-20 03:02 | External Medical Summary | Summary of Care ---
Author Name Unknown Organization [facility] Address [address] [facility] [address] Phone [phone] Care Team Providers Care Business Banking Sales Assistant Name Role Phone Alex Prater MD Primary Care Provider + Reason for Visit * Reason Comments Outpatient Testing Encounter Details Date Type Department Care Team (Late st Contact Info) Description 09/02/2023 8:30 AM EDT Laboratory Laboratory [facility] [address] [place] [phone] [facility] Lab Scenery [address] [place] [address] Zainab cell carcinoma of trunk (HCC) Allergies No known active allergiesdocumented as of this encounter (statuses as of 09/02/2023) Medications Medication Sig Dispensed Refills Start Date End Date Status Avelumab 200 MG/10ML Intravenous Solution (Bavencio) Administer intravenously 10 mg/kg once . 0 Active Vitamin D (Ergocalciferol) 28271 UNIT Oral Capsule Take by mouth . 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), scalp/neck 9 [place] cell carcinoma of trunk 08/05/2018 Gastroesophageal reflux disease without esophagi tis 04/03/2017 Thoracic aortic aneurysm without rupture 017 History of tobacco use 08/09/2016 History of basal cell carcinoma 11/01/2013 Overview: left anabaptism 11/04 Hyperlipidemia 12/14/2009 documented as of this [...] mRNA, LNP-s, No Pre serve, 2-Dose Series ([employer]) 07/22/2020,07/01/2020 COVID-19, LNP-s, No Preserve , Leonardo-sucrose, Ages 12+ (Pfizer) 10/02/2021,02/23/2021 COVID-19, MRNA-LNP, 23-24, P F, 50 MCG/0.5 mL, 12 YRS AND ABOVE, IM (MODERNA-Spikevax) 03/11/2023 Covid-19, Mrna, Lnp-s, Pf, B ivalent, 30 Mcg, IM, 12 yrs and above ([employer]) 04/03/2022 H1N1 2009 Influenza, IM 05/23/2009 PPD [...] 09/02/2023 9:00 AM EDT Office Visit Hematology/Oncology [facility] [place] [address] [place] [address] [phone] Marshall Guaman MD [address] [place] [address] [address] Arrived 09/02/2023 9:30 AM EDT Hem/Onc Treatment Hematology/Oncology Treatment, [place] [address] [place] [phone] Altag[place]ia, Chair 2 Hem Onc [place] [address] [place] [place] [address] Arrived 10/24/2023 9:15 AM EDT Office Visit Dermatology [facility] [place] [address] [place] [address] [address] Alex Lassiter MD [address] [place] [address] 03/01/2024 9:30 AM EDT Office Visit [facility] [address] [place] [address] Shilo Cuevas MD [address] [place] [address] Pending Results Name Type Priority Associated Diagnoses Date /Time COMPREHENSIVE METABOLIC PANEL Lab STAT Zainab cell carcinoma of trunk (HCC) 09/02/2023 8:16 AM EDT TSH WITH FREE T4 IF INDICATED Lab STAT [place] cell carcinoma of trunk (HCC) 09/02/2023 8:16 AM EDT Scheduled Procedures Name Priority Associated Diagnoses Date/Ti me COLONOSCOPY FLEXIBLE PROXIMA L DIAGNOSTIC Recall Personal history of colonic polyps Health Maintenance Due Date Last Done Comments Depression Screening 03/08/2023 03/08/2022 COLONOSCOPY-EVERY 5 YRS AGES 18-100 03/25/2024 03/25/2019, 03/25/2019, 08/19/2013, Additional history exists GFR 08/19/2024 08/20/2023, 07/24, 07/22/2023, Additional history exists Albumin/Creatinine Ratio 09/09/2025 09/09/2022 [...] Not on filedocumented as of this encounter Procedures Procedure Name Priority Date/Time Associated Diagnosis Comments DIFFERENTIAL, AUTOMATED STAT 09/02/2023 8:16 AM EDT Zainab cell carcinoma of trunk (HCC) CBC STAT 09/02/2023 8:16 AM EDT Zainab cell carcinoma of trunk (HCC) CBC STAT 09/02/2023 8:16 AM EDT [place] cell carcinoma of trunk (HCC) documented in this encounter Results * (ABNORMAL) DIFFERENTIAL, AUTOMATED (09/02/2023 8:16 AM EDT) WBC 5.52 4.00 - 10.80 K/uL 09/02/2023 8:26 AM EDT [facility] [place] 56-02 Neutrophils % 59.4 40.0 - 75.0 % 09/02/2023 8:26 AM EDT [facility] [place] 56-02 Lymphocytes % 20.8 18.0 - 42.0 % 09/02/2023 8:26 AM EDT [facility] [place] 56-02 Monocytes % 14.9(H) 1.0 - 11.0 % 09/02/2023 8:26 AM EDT LAB[facility]ATORY [facility] 56-02 Eosinophils % 4.5 0.0 - 6.0 % 09/02/2023 8:26 AM EDT LABORATORY [facility] 56-02 Basophils % 0.4 0.0 - 2.0 % 09/02/2023 8:26 AM EDT [facility] [place] 56-02 Absolute Neutrophils 3.28 1.80 - 7.70 K/uL 09/02/2023 8:26 AM EDT [facility] [place] 56-02 Absolute Lymphocytes 1.15 1.00 - 4.80 K/ul 09/02/2023 8:26 AM EDT LAB[facility]ATORY [facility] 56-02 Absolute Monocytes 0.82 0.00 - 1.10 K/uL 09/02/2023 8:26 AM EDT LAB[facility]ATORY [facility] 56-02 Absolute Eosinophils 0.25 0.00 - 0.70 K/uL 09/02/2023 8:26 AM EDT [facility] [place] 56-02 Absolute Basophils 0.02 0.00 - 0.20 K/uL 09/02/2023 8:26 AM EDT [facility] 56 Blood Venous blood specimen / Unknown Venipuncture / Unknown 09/02/2023 8:16 AM EDT 09/02/2023 8:16 AM EDT Marshall Guaman MD LAB BLOOD [place] [address] [address] [place], [place] [phone] * CBC (09/02/2023 8:16 AM EDT) WBC 5.52 4.00 - 10.80 K/uL 09/02/2023 8:26 AM EDT [place] [address] RBC 5.04 4.50 - 5.25 M/uL 09/02/2023 8:26 AM EDT [place] [address] HGB 15.4 14.0 - 16.8 g/dL 09/02/2023 8:26 AM EDT [address] HCT 47.3 40.0 - 48.4 % 09/02/2023 8:26 AM EDT [address] MCV 93.8 82.0 - 99.5 fL 09/02/2023 8:26 AM EDT [address] MCH 30.6 27.0 - 34.0 pg 09/02/2023 8:26 AM EDT [address] MCHC 32.6 32.0 - 36.0 g/dL 09/02/2023 8:26 AM EDT [address] RDW 13.3 11.5 - 15.5 % 09/02/2023 8:26 AM EDT [facility] 56 PLT 278 140 - 400 K/uL 09/02/2023 8:26 AM EDT [facility] 56 MPV 9.3 6.6 - 11.1 fL 09/02/2023 8:26 AM EDT [facility] 56 Blood Venous blood specimen / Unknown Venipuncture / Unknown 09/02/2023 8:16 AM EDT 09/02/2023 8:16 AM EDT Marshall Guaman MD LAB BLOOD [address] [facility] 56-02 [facility] [address] documented in this encounter Visit Diagnoses Diagnosis [place] cell carcinoma of trunk (HCC) [place] cell carcinoma of the trunk documented in this encounter Care Teams Business Banking Sales Assistant Relationship Specialty Start Date End Date Alex Prater MD [address] [facility] [address] PCP - General Internal Medicine 02/07/21 documented as of this encounter
--- OUTSIDE RECORDS SUMMARY | 2023-09-20 03:02 | External Medical Summary ---
Author Name Unknown Address Unknown Organization K01:[facility] [place] [address] [place] [address] Laboratory Report Ordering Provider Test Date Status APURVA TIRADO 09/16/2023 07:18:27 Final Observation Date Value Abnormality Reference (Units ) Status TSH 09/16/2023 07:18:27 1.35 0.27-4.20 (uIU/mL) Final Performing Location [facility] - [address] [place] [address]
--- OUTSIDE RECORDS SUMMARY | 2023-09-20 03:02 | External Medical Summary ---
Author Name Unknown Address Unknown Organization K01:[facility] [place] - [address] [place] [address] Laboratory Report Ordering Provider Test Date Status APURVA TIRADO 09/02/2023 08:16:40 Final Observation Date Value Abnormality Reference (Units ) Status TSH 09/02/2023 08:16:40 1.52 0.27-4.20 (uIU/mL) Final Performing Location [facility] - [address] [place] [address]
--- OUTSIDE RECORDS SUMMARY | 2023-09-20 03:02 | External Medical Summary ---
Author Name Unknown Address Unknown Organization K09:[facility] [place] [address] Laboratory Report Ordering Provider Test Date Status APURVA TIRADO 09/02/2023 08:16:40 Final Observation Date Value Abnormality Reference (Units ) Status SYNC LEUKOCYTES IN BLOOD BY AUTOMATED COUNT 09/02/2023 08:16:40 5.52 4.00-10.80 (K/uL) Final Segs 09/02/2023 08:16:40 59.4 40.0-75.0 (%) Final Lymphs % 09/02/2023 08:16:40 20.8 18.0-42.0 (%) Final Monos 09/02/2023 08:16:40 14.9 Above high normal 1.0-11.0 (%) Final Eosinophils 09/02/2023 08:16:40 4.5 0.0-6.0 (%) Final Basos 09/02/2023 08:16:40 0.4 0.0-2.0 (%) Final Absolute Segs 09/02/2023 08:16:40 3.28 1.80-7.70 (K/uL) Final Lymphs, absolute 09/02/2023 08:16:40 1.15 1.00-4.80 (K/ul) Final Monos, Abs 09/02/2023 08:16:40 0.82 0.00-1.10 (K/uL) Final Eos, Abs 09/02/2023 08:16:40 0.25 0.00-0.70 (K/uL) Final Basos, Abs 09/02/2023 08:16:40 0.02 0.00-0.20 (K/uL) Final Performing Location [facility] [place] [address]
--- OUTSIDE RECORDS SUMMARY | 2023-09-20 03:02 | External Medical Summary | Summary of Care ---
Author Name Unknown Organization [facility] Address [address] [facility] [place] [address] Phone [phone] Care Team Providers Care Ground Products Director Name Role Phone Alex Prater MD Primary Care Provider + Reason for Visit * Reason Comments Outpatient Testing Encounter Details Date Type Department Care Team (Late st Contact Info) Description 09/16/2023 7:10 AM EDT Laboratory Laboratory [facility] [address] [place] [address] [facility] Lab Scenery [address] [place] [address] [place] cell carcinoma of trunk (HCC) Allergies No known active allergiesdocumented as of this encounter (statuses as of 09/16/2023) Medications Medication Sig Dispensed Refills Start Date End Date Status Avelumab 200 MG/10ML Intravenous Solution (Bavencio) Administer intravenously 10 mg/kg once . 0 Active Vitamin D (Ergocalciferol) 54146 UNIT Oral Capsule Take by mouth . [...] as of this encounter (statuses as of 09/16/2023) Active Problems Problem Noted Date Diagnosed Date History of prostate cancer 03/08/2022 Overview: Brachytherapy Plantar fasciitis, right 08/14/2021 HTN, goal below 140/90 02/07/2021 Metastatic [place] cell carcinoma to lymph node 1 BCC (basal cell carcinoma), scalp/neck 9 [place] cell carcinoma of trunk 08/05/2018 Gastroesophageal reflux disease without esophagi tis 04/03/2017 Thoracic aortic aneurysm without rupture 017 History of tobacco use 08/09/2016 History of basal cell carcinoma 11/01/2013 Overview: left buddhist 11/04 Hyperlipidemia 12/14/2009 documented as of this encounter (statuses as of 09/16/2023) Resolved Problems Problem Noted Date Diagnosed Date [...] as of this encounter (statuses as of 09/16/2023) Immunizations Name Administration Dates Next Due COVID-19 mRNA, LNP-s, No Pre serve, 2-Dose Series (Sidelines) 07/22/2020,07/01/2020 COVID-19, LNP-s, No Preserve , Leonardo-sucrose, Ages 12+ (Pfizer) 10/02/2021,02/23/2021 COVID-19, MRNA-LNP, 23-24, P F, 50 MCG/0.5 mL, 12 YRS AND ABOVE, IM (MODERNA-Spikevax) 03/11/2023 Covid-19, Mrna, Lnp-s, Pf, B ivalent, 30 Mcg, IM, 12 yrs and above (Pfizer) 04/03/2022 H1N1 2009 Influenza, IM 05/23/2009 PPD [...] Team (Late st Contact Info) Description 09/16/2023 8:30 AM EDT [facility] [phone] [place], Chair 9 Hem Onc [address] [place] [address] Arrived 09/30/2023 7:20 AM EDT Laboratory Laboratory [facility] [place] [address] [place] [phone] [place], Lab [address] [place] [address] 09/30/2023 8:30 AM EDT Hem[facility] [phone] [place], Chair 4 Hem Onc Scenery [address] [place], [place] [address] 10/14/2023 7:40 AM EDT Laboratory Laboratory [facility] [place] [address] [place], [place] [phone] [place], Lab Scenery [address] [facility], [place] [address] 10/14/2023 8:30 AM EDT Office Visit Hematology/Oncology [facility] [place] [address] [place], [place] [phone] Marshall Guaman MD [address] [place], [place] [address] 10/14/2023 9:00 AM EDT Hem[facility] [address] [place], [place] [phone] [place], Chair 3 Hem Onc Scenery 200 [facility] [place], [place] [address] 10/24/2023 9:15 AM EDT Office Visit Dermatology [facility] [place] [address] [place], [place] [address] Alex Lassiter MD [address] [place], [place] [address] 03/01/2024 9:30 AM EDT Office Visit [facility] [address] [place] [address] Shilo Cuevas MD 16 [place] [address] 04/29/2024 9:15 AM EST Office Visit Dermatology [facility] [place] [address] [place], [place] [address] Alex Lassiter MD [address] [place] [address] Pending Results Name Type Priority Associated Diagnoses Date /Time COMPREHENSIVE METABOLIC PANEL Lab STAT Zainab cell carcinoma of trunk (HCC) 09/16/2023 7:18 AM EDT TSH WITH FREE T4 IF INDICATED Lab STAT Zainab cell carcinoma of trunk (HCC) 09/16/2023 7:18 AM EDT Scheduled Procedures Name Priority Associated [...] Date/Time Associated Diagnosis Comments DIFFERENTIAL, AUTOMATED STAT 09/16/2023 7:18 AM EDT [place] cell carcinoma of trunk (HCC) CBC STAT 09/16/2023 7:18 AM EDT Zainab cell carcinoma of trunk (HCC) CBC STAT 09/16/2023 7:18 AM EDT Zainab cell carcinoma of trunk (HCC) documented in this encounter Results * DIFFERENTIAL, AUTOMATED (09/16/2023 7:18 AM EDT) WBC 6.15 4.00 - 10.80 K/uL 09/16/2023 7:25 AM EDT [facility]02 Neutrophils % 64.5 40.0 - 75.0 % 09/16/2023 7:25 AM EDT [facility]02 Lymphocytes % 20.5 18.0 - 42.0 % 09/16/2023 7:25 AM EDT [facility]02 Monocytes % 10.4 1.0 - 11.0 % 09/16/2023 7:25 AM EDT [facility]02 Eosinophils % 4.1 0.0 - 6.0 % 09/16/2023 7:25 AM EDT [facility]02 Basophils % 0.5 0.0 - 2.0 % 09/16/2023 7:25 AM EDT [facility]02 Absolute Neutrophils 3.97 1.80 - 7.70 K/uL 09/16/2023 7:25 AM EDT [facility]02 Absolute Lymphocytes 1.26 1.00 - 4.80 K/ul 09/16/2023 7:25 AM EDT [facility]02 Absolute Monocytes 0.64 0.00 - 1.10 K/uL 09/16/2023 7:25 AM EDT [facility]02 Absolute Eosinophils 0.25 0.00 - 0.70 K/uL 09/16/2023 7:25 AM EDT [facility]02 Absolute Basophils 0.03 0.00 - 0.20 K/uL 09/16/2023 7:25 AM EDT [facility]02 Blood Venous blood specimen / Unknown Venipuncture / Unknown 09/16/2023 7:18 AM EDT 09/16/2023 7:18 AM EDT Marshall Guaman MD LAB BLOOD ORDERA BLES [facility]-02 [address] [place] [address] * CBC (09/16/2023 7:18 AM EDT) WBC 6.15 4.00 - 10.80 K/uL 09/16/2023 7:25 AM EDT [facility] 56- RBC 4.87 4.50 - 5.25 M/uL 09/16/2023 7:25 AM EDT [facility] 56 HGB 15.0 14.0 - 16.8 g/dL 09/16/2023 7:25 AM EDT [facility] 56 HCT 45.6 40.0 - 48.4 % 09/16/2023 7:25 AM EDT [facility] 56 MCV 93.6 82.0 - 99.5 fL 09/16/2023 7:25 AM EDT [facility] 56 MCH 30.8 27.0 - 34.0 pg 09/16/2023 7:25 AM EDT [facility] 56 MCHC 32.9 32.0 - 36.0 g/dL 09/16/2023 7:25 AM EDT [facility] 56 RDW 13.4 11.5 - 15.5 % 09/16/2023 7:25 AM EDT [facility] 56 PLT 290 140 - 400 K/uL 09/16/2023 7:25 AM EDT [facility] 56 MPV 9.0 6.6 - 11.1 fL 09/16/2023 7:25 AM EDT [facility] 56 Blood Venous blood specimen / Unknown Venipuncture / Unknown 09/16/2023 7:18 AM EDT 09/16/2023 7:18 AM EDT Marshall Guaman MD LAB BLOOD ORDERA BLES [facility] 56 [address] [place] [address] documented in this encounter Visit Diagnoses Diagnosis [place] cell carcinoma of trunk (HCC) Zainab cell carcinoma of the trunk documented in this encounter Care Teams Ground Products Director Relationship Specialty Start Date End Date Alex Prater MD 200 [place] [address] PCP - General Internal Medicine 02/07/21 documented as of this encounter
--- OUTSIDE RECORDS SUMMARY | 2023-09-20 03:02 | External Medical Summary | Summary of Care ---
Author Name Unknown Organization [facility] Address [address] [facility] [address] Phone [phone] Care Team Providers Care Manager Float Name Role Phone Alex Prater MD Primary Care Provider + Encounter Details Date Type Department Care Team (Late st Contact Info) Description 09/16/2023 Orders Only Hematology/Oncology, [facility] [address] [facility] [address] Marshall Guaman MD 200 [facility] [address] Allergies No known active allergiesdocumented as of this encounter (statuses as of 09/16/2023) Medications Medication Sig Dispensed Refills Start Date End Date Status Avelumab 200 MG/10ML Intravenous Solution (Bavencio) Administer intravenously 10 mg/kg once . 0 Active Vitamin D (Ergocalciferol) 89373 UNIT Oral Capsule Take by mouth . 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 Gastroesophageal reflux disease without esophagi tis 04/03/2017 Thoracic aortic aneurysm without rupture 017 History of tobacco use 08/09/2016 History of basal cell carcinoma 11/01/2013 Overview: left orthodoxy 11/04 Hyperlipidemia 12/14/2009 documented as of this [...] mRNA, LNP-s, No Pre serve, 2-Dose Series (Platypi) 07/22/2020,07/01/2020 COVID-19, LNP-s, No Preserve , Leonardo-sucrose, Ages 12+ (Pfizer) 10/02/2021,02/23/2021 COVID-19, MRNA-LNP, 23-24, P F, 50 MCG/0.5 mL, 12 YRS AND ABOVE, IM (MODERNA-Spikevax) 03/11/2023 Covid-19, Mrna, Lnp-s, Pf, B ivalent, 30 Mcg, IM, 12 yrs and above (Platypi) 04/03/2022 H1N1 2009 Influenza, IM 05/23/2009 PPD [...] Care Team (Late st Contact Info) Description 09/30/2023 7:20 AM EDT Laboratory Laboratory [facility] [place] [address] [place] [phone] [place] Lab Scenery [address] [facility] [place] [address] 09/30/2023 8:30 AM EDT Hem/Onc Treatment Hematology/Oncology Treatment, [place] [address] [place] [phone] [place], Chair 4 Hem On[address] [place] [address] [place] [address] 10/14/2023 7:40 AM EDT Laboratory Laboratory [facility] [place] [address] [place] [phone] [place] Lab Scenery [address] [facility] [place] [address] 10/14/2023 8:30 AM EDT Office Visit Hematology/Oncology [facility] [place] [address] [place] [phone] Marshall Guaman MD [address] [place] [address] 10/14/2023 9:00 AM EDT Hem/Onc Treatment Hematology/Oncology Treatment, [place] [address] [place], [place] [phone] [place], Chair 3 Hem On[address] [place] [address] 10/24/2023 9:15 AM EDT [facility] [place] [address] [place] [address] Alex Lassiter MD 200 [facility] [place] [address] 03/01/2024 9:30 AM EDT Office Visit [address] [address] Shilo Cuevas MD [address] [place] [address] 04/29/2024 9:15 AM EST Office Visit Dermatology [facility] [place] 200 [facility] [place] [address] Alex Lassiter MD [address] [place] [address] [address] [place], [place] [address] Scheduled Procedures Name Priority Associated Diagnoses Date/Ti me COLONOSCOPY FLEXIBLE PROXIMA L DIAGNOSTIC Recall Personal history of colonic polyps Health Maintenance Due Date Last Done Comments Depression Screening 03/08/2023 03/08/2022 COLONOSCOPY-EVERY 5 YRS AGES 18-100 03/25/2024 03/25/2019, 03/25/2019, 08/19/2013, Additional history exists GFR 09/15/2024 09/16/2023, 04/0 01/2024, 08/20/2023, Additional history exists Albumin/Creatinine Ratio 09/09/2025 09/09/2022 [...] filedocumented as of this encounter Care Teams Manager Float Relationship Specialty Start Date End Date Alex Prater MD 200 [place] [address] PCP - General Internal Medicine 02/07/21 documented as of this encounter
--- OUTSIDE RECORDS SUMMARY | 2023-09-20 03:02 | External Medical Summary | Summary of Care ---
Author Name Unknown Organization [facility] Address [address] [facility] [place] [address] Phone [phone] Care Team Providers Care Wire Web Worker Name Role Phone Alex Prater MD Primary Care Provider + Reason for Visit * Reason Comments Chemotherapy Bavencio. * Episode Based Medications (Routine) - Authorized Specialty Diagnoses / Procedures Referred By Contac t Referred To Contact Diagnoses [place] cell carcinoma of trunk (HCC) Procedures NM INJECTION, AVELUMAB, 10 MG Marshall Guaman MD [address] [place] [address] Anc Hem/Onc Danay Frias DEPT CLOSED - 04/08/[address] [phone] Referral ID Status Reason Start Date Expiration Date V isits Requested Visits Authorized [id number] Authorized 03/10/2023 03/03/2024 99 99 Encounter Details Date Type Department Care Team (Latest Contact Info) Description 09/16/2023 8:30 AM EDT Hem/Onc Treatment Hematology/Oncolog y Treatment, [place] [address] [place] [phone] [place], Chair 9 Hem Onc Scenery [address] [place] [place] [address] Zainab cell carcinoma of trunk (HCC)*; Encounter for antineoplastic chemotherapy Allergies No known active allergiesdocumented as of this encounter (statuses as of 09/16/2023) Medications Medication Sig Dispensed Refills Start Date End Date Status Avelumab 200 MG/10ML Intravenous Solution (Bavencio) Administer intravenously 10 mg/kg once . 0 Active Vitamin D (Ergocalciferol) 90720 UNIT Oral Capsule Take by mouth . 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 BCC (basal cell carcinoma), scalp/neck 9 [place] cell carcinoma of trunk 08/05/2018 Gastroesophageal reflux disease without esophagi tis 04/03/2017 Thoracic aortic aneurysm without rupture 017 History of tobacco use 08/09/2016 History of basal cell carcinoma 11/01/2013 Overview: left sabianism 11/04 Hyperlipidemia 12/14/2009 documented as of this [...] mRNA, LNP-s, No Pre serve, 2-Dose Series (ACTON) 07/22/2020,07/01/2020 COVID-19, LNP-s, No Preserve , Leonardo-sucrose, Ages 12+ (ACTON) 10/02/2021,02/23/2021 COVID-19, MRNA-LNP, 23-24, P F, 50 MCG/0.5 mL, 12 YRS AND ABOVE, IM (MODERNA-Spikevax) 03/11/2023 Covid-19, Mrna, Lnp-s, Pf, B ivalent, 30 Mcg, IM, 12 yrs and above (ACTON) 04/03/2022 H1N1 2009 Influenza, IM 05/23/2009 PPD [...] Sign Reading Time Taken Comments Blood Pressure 156/85 09/16/2023 8:05 AM EDT Pulse 75 09/16/2023 8:05 AM EDT Temperature 36.4 C (97.5 F) 09/16/2023 8:05 AM ED T Respiratory Rate 18 09/16/2023 8:05 AM EDT Oxygen Saturation 94% 09/16/2023 8:05 AM EDT Inhaled Oxygen Concentration - - Weight 78.9 kg (174 lb) 09/16/2023 8:05 AM EDT Height - - Body Mass Index 26.99 09/11/2023 9:40 AM EDT documented in this encounter Nursing Notes * Nikki Gilmore RN - 09/16/2023 10:14 AM EDT Goals: Patient will remain free from injury. Possible barriers to meeting goals: Fall risk d/t ambulation with IV pole. Stability of the patient: Moderately unstable - medium risk of patient condition declining or worsening Summary regarding today's goals: Met: Patient remained free of injury. Patient tolerated infusion well. Discharged in stable condition. * Nikki Gilmore RN - 09/16/2023 8:25 AM EDT Chair 9. Patient arrived for bavencio infusion with no acute complaints. Patient does have sling on right arm, patient had a fall and had surgery. MD already aware. PIV established. Chemotherapy/Immunotherapy agents: Bavencio. Consent for chemotherapy drug treatment complete, dated, and signed? yes, date - 08/09/2019 Treatment lab parameters met? Yes Has treatment weight changed > than 10%? No Treatment preauthorized? Yes VITALS Filed Vitals: 09/16/23 0805 BP: 156/85 Pulse: 75 Resp: 18 Temp: 36.4 C (97.5 F) TempSrc: Tympanic SpO2: 94% Weight: 78.9 kg (174 lb) Urine protein: N/A Patient education completed for treatment? Yes Blood transfusion consent signed and complete? NA Return appointment scheduled? Yes Patient had provider visit today? No - If no provider visit must complete Pretreatment Assessment Functional Status: Functional status at today's visit: Restricted in physically strenuous activity but ambulatory and able to carry out work on a light orsedentary nature, e.g. light house work, office work The drug name, dose, infusion volume, rate and route of administration, expiration date and time, appearance and physical integrity of the drug and rate set on the pump and sequencing of drug administration (as applicable) were verified by me and second sign-in RN. Patient was assessed for symptoms or adverse side effects during treatment. PRE-TREATMENT ASSESSMENT: NEURO: denies symptoms CV/RESP: denies symptoms GI/: denies symptoms OTHER: denies any additional symptoms PAIN: 0 Safety and Risk for Injury Patient will remain free from injury. Ensure appropriate safety devices are available. Provide and maintain safe environment. documented in this encounter Plan of Treatment Upcoming Encounters Date Type Department Care Team (Late st Contact Info) Description 09/30/2023 7:20 AM EDT Laboratory Laboratory [facility] [place] [address] [place] [phone] [place], Lab [address] [place] [address] 09/30/2023 8:30 AM EDT Hem/Onc Treatment Hematology/Oncology Treatment, [place] [address] [facility] [address] [place] [phone] [place], Chair 4 Hem [facility] 200 [facility] [place] [address] 10/14/2023 7:40 AM EDT Laboratory Laboratory [facility] [place] [address] [place] [phone] [place], [facility] 200 [facility] [place] [address] 10/14/2023 8:30 AM EDT Office Visit Hematology/Oncology [facility] [place] [address] [place] [phone] Marshall Guaman MD [address] [place] [address] 10/14/2023 9:00 AM EDT Hem/Onc Treatment Hematology/Oncology Treatment, [place] [address] [place], [place] [phone] [place], Chair 3 Hem Onc [facility] 200 [facility] [place] [address] 10/24/2023 9:15 AM EDT Office Visit Dermatology [facility] [place] 200 [facility] [place] [address] Alex Lassiter MD 200 [facility] [place] [address] 03/01/2024 9:30 AM EDT Office Visit [address] [address] Shilo Cuevas MD [address] [place] [address] 04/29/2024 9:15 AM EST Office Visit Dermatology [facility] [place] 200 [facility] [place] [address] Alex Lassiter MD 200 [facility] [place] [address] Scheduled Procedures Name Priority Associated Diagnoses Date/Ti [...] as of this encounter Visit Diagnoses Diagnosis [place] cell carcinoma of trunk (HCC)- Primary Zainab cell carcinoma of the trunk Encounter for antineoplastic chemotherapy documented in this encounter Administered Medications Active Administered Medications - up to 3 most recent administrations Medication Order MAR Action Action Date Dose Rate Site diphenhydrAMINE (Benadryl) inj 50 mg 50 mg, IV Push, ONCE PRN Other, Hypersensitivity Reaction, Starting on Fri09/16/23 at 0810, Until Fri09/17/23 at 0809, For 24 hours EPINEPHrine 1 MG/ML inj 0.3 mg 0.3 mg, Intramuscular, ONCE PRN Other, Hypersensitivity Reaction or Anaphylaxis, Starting on Fri09/16/23 at 0810, Until Fri09/17/23 at 0809, For 24 hours hEParin 100 UNIT/ML Lock Flush inj 500 Units 500 Units (5 mL), IV Lock, PRN Other, IV Flush, Starting on Fri09/16/23 at 0810, Until Fri09/17/23 at 0809, For 24 hours, Do not flush if lock, PICC, or central line not in place; IV infusing or unable to flush. Hydrocortisone Sod Suc (PF) (Solu-Cortef) inj 100 mg 100 mg, IV Push, ONCE PRN Other, Hypersensitivity Reaction, Starting on Fri09/16/23 at 0810, Until Fri09/17/23 at 0809, For 24 hours NSS infusion 500 mL, Intravenous, at 50 mL/hr, CONTINUOUS, Starting on Fri09/16/23 at 0915, Until Fri09/16/23 at 1914 Start Infusion 09/16/2023 8:15 AM EDT 500 mL 50 mL/hr sodium chloride 0.9 % flush central line 10 mL 10 mL, IV Push, PRN Other, IV Flush, Starting on Fri09/16/23 at 0810, Until Fri09/17/23 at 0809, For 24 hours, Do not flush if lock, PICC, or central line not in place; IV infusing or unable to flush. Inactive Administered Medications - up to 3 most recent administrations Medication Order MAR Action Action Date Dose Rate Site Acetaminophen (Tylenol) tab 650 mg 650 mg, Oral, ONCE, On Fri09/16/23 at 0830, For 1 dose, Maximum of 4 grams (4000 mg) per day. Given 09/16/2023 8:20 AM EDT 650 mg Avelumab (Bavencio) 800 mg in NSS 250 mL 800 mg, IV Piggyback, ONCE, 1 dose, On Fri09/16/23 at 0900, Administer over 60 Minutes, Use low protein binding 0.2 micron filter Start Infusion 09/16/2023 9:09 AM EDT 800 mg 315 mL/hr diphenhydrAMINE (Benadryl) cap 25 mg 25 mg, Oral, ONCE, On Fri09/16/23 at 0830, For 1 dose Given 09/16/2023 8:20 AM EDT 25 mg documented in this encounter Care Teams Wire Web Worker Relationship Specialty Start Date End Date Alex Prater MD 200 [place] [address] PCP - General Internal Medicine 02/07/21 documented as of this encounter
--- OUTSIDE RECORDS SUMMARY | 2023-09-20 03:02 | External Medical Summary ---
Author Name Unknown Address Unknown Organization [facility] [place] [address] Laboratory Report Ordering Provider Test Date Status APURVA TIRADO 09/16/2023 07:18:27 Final Observation Date Value Abnormality Reference (Units ) Status WBC, Total 09/16/2023 07:18:27 6.15 4.00-10.8 0 (K/uL) Final RBC 09/16/2023 07:18:27 4.87 4.50-5.25 (M/uL) Final Hemoglobin 09/16/2023 07:18:27 15.0 14.0-16.8 (g/dL) Final HCT 09/16/2023 07:18:27 45.6 40.0-48.4 (%) Final MCV 09/16/2023 07:18:27 93.6 82.0-99.5 (fL) Final MCH 09/16/2023 07:18:27 30.8 27.0-34.0 (pg) Final MCHC 09/16/2023 07:18:27 32.9 32.0-36.0 (g/dL) Final RDW 09/16/2023 07:18:27 13.4 11.5-15.5 (%) Final Platelets 09/16/2023 07:18:27 290 140-400 (K /uL) Final MPV 09/16/2023 07:18:27 9.0 6.6-11.1 ( fL) Final Performing Location [facility] [place] [address]
--- OUTSIDE RECORDS SUMMARY | 2023-09-20 03:02 | External Medical Summary | Summary of Care ---
Author Name Unknown Organization [facility] Address [address] [facility] [place] [address] Phone [phone] Care Team Providers Care Forensic Medical Examiner Name Role Phone Alex Prater MD Primary Care Provider + Reason for Visit * Reason Comments Fall Patient fell on down 7 steps and ripped a tendon on the back of his left arm. Patient had surgery to have a repair last . Patient has been experiencing a terrible pain in his left hip. Patient states there there was bruising on his right hip but not his left hip. Patient has been taking [id number] mg and reports (-) relief. Encounter Details Date Type Department Care Team (Late st Contact Info) Description 09/11/2023 9:40 AM EDT Office Visit [facility] [address] [facility] [place] [address] Mariah Mukherjee MD [address] [place] [address] Fall, subsequent encounter*; Rupture of right triceps tendon, subsequent encounter; Hip pain, left Allergies No known active allergiesdocumented as of this encounter (statuses as of 09/11/2023) Medications Medication Sig Dispensed Refills Start Date End Date Status Avelumab 200 MG/10ML Intravenous Solution (Bavencio) Administer intravenously 10 mg/kg once . 0 Active Vitamin D (Ergocalciferol) 16057 UNIT Oral Capsule Take by mouth . [...] as of this encounter (statuses as of 09/11/2023) Active Problems Problem Noted Date Diagnosed Date [...] of basal cell carcinoma 11/01/2013 Overview: left synagogue 6/12 Hyperlipidemia 12/14/2009 documented as of this encounter (statuses as of 09/11/2023) Resolved Problems Problem Noted Date Diagnosed Date [...] as of this encounter (statuses as of 09/11/2023) Immunizations Name Administration Dates Next Due COVID-19 mRNA, LNP-s, No Pre serve, 2-Dose Series (TuneIn Twitter Dashboard) 07/22/2020,07/01/2020 COVID-19, LNP-s, No Preserve , Leonardo-sucrose, Ages 12+ (Pfizer) 10/02/2021,02/23/2021 COVID-19, MRNA-LNP, 23-24, P F, 50 MCG/0.5 mL, 12 YRS AND ABOVE, IM (MODERNA-Spikevax) 03/11/2023 Covid-19, Mrna, Lnp-s, Pf, B ivalent, 30 Mcg, IM, 12 yrs and above (TuneIn Twitter Dashboard) 04/03/2022 H1N1 2009 Influenza, IM 05/23/2009 PPD [...] Sign Reading Time Taken Comments Blood Pressure 132/88 09/11/2023 9:40 AM EDT Pulse 73 09/11/2023 9:40 AM EDT Temperature 36.5 C (97.7 F) 09/11/2023 9:40 AM ED T Respiratory Rate - - Oxygen Saturation 98% 09/11/2023 9:40 AM EDT Inhaled Oxygen Concentration - - Weight 78.5 kg (173 lb 1.3 oz) 09/11/2023 9:40 A M EDT Height 171 cm (5' 7.32") 09/11/2023 9:40 AM EDT Body Mass Index 26.85 09/11/2023 9:40 AM EDT documented in this encounter Progress Notes * Mariah Mukherjee MD - 09/11/2023 9:44 AM EDT Subjective Chief Complaint Patient presents with Fall Patient fell on August 14 down 7 steps and ripped a tendon on the back of his left arm. Patient had surgery to have a repair last . Patient has been experiencing a terrible pain in his left hip. Patient states there there was bruising on his right hip but not his left hip. Patient has been taking [id number] mg and reports (-) relief. HPI: Hamilton Etienne is a 83 year old male. Patient is unaccompanied. The following issues were addressed today: Patient presents today for left hip pain s/p fall. On 08/15/23 tried to climb over a boulder in his garden and ended up falling and rolling down 7 rock steps. He did not hit his head or lose consciousness. Was initially evaluated in the emergency room. Tore his right triceps tendon and had it repaired at [facility] last week. He started physical therapy yesterday. Initially had right hip pain and bruising after the fall but that has resolved. For the past week, he has had worsening left hip pain. Has no problem with weight bearing or walking but pain with walking up steps, putting on shoes, or hip abduction. Feels the pain in his posterior hip area. No radiation of pain, no numbness or tingling, no weakness. Rates his pain 4/10 today. Was taking Tylenol and ibuprofen for his arm pain but has not been taking anything now for the hip. Review of Systems: See HPI Objective BP 132/88 | Pulse 73 | Temp 36.5 C (97.7 F) (Tympanic) | Ht 1.71 m (5' 7.32") | Wt 78.5 kg (173lb 1.3 oz) | SpO2 98% | BMI 26.85 kg/m | BSA 1.93 m Wt Readings from Last 3 Encounters: 09/11/23 78.5 kg (173 lb 1.3 oz) 09/02/23 78.8 kg (173 lb 12.8 oz) 07/22/23 80 kg (176 lb 6.4 oz) BP Readings from Last 3 Encounters: 09/11/23 132/88 09/02/23 129/85 08/20/23 147/81 General: Well-appearing, no acute distress Head: Normocephalic and atraumatic Musculoskeletal: Hips are without deformity or ecchymosis bilaterally. Non- tender to palpation. There is posterior pain with hip abduction. Strength 5/5 with hip flexion, knee extension and flexion, and ankle plantar flexion and dorsiflexion. Sensation is grossly intact. Gait is normal. Neurological: Alert and oriented, no focal deficits noted Psychiatric: Appropriate mood and affect Assessment & Plan 1. Fall, subsequent encounter Mechanical fall without concern for dizziness or syncope. No history of frequent falls. Patient was fully evaluated in the emergency room. 2. Rupture of right triceps tendon, subsequent encounter S/p surgical repair, currently in physical therapy. Follow-up for post-op with [facility] as scheduled. 3. Hip pain, left Check x-ray. Start ibuprofen +/- Tylenol, activity modification. Suspect possible underlying OA with exacerbation of symptoms following fall vs strain/muscular injury to the gluteus. - XR HIP BILAT MIN 5 VIEWS INCLUDING AP OF PELVIS Check-out note: X-rays today This note was electronically signed by Mariah Mukherjee MD documented in this encounter Nursing Notes * Cristian Zhang MED ASSIST - 09/11/2023 9:40 AM EDT Chief Complaint Patient presents with Fall Patient fell on August 14 down 7 steps and ripped a tendon on the back of his left arm. Patient had surgery to have a repair last . Patient has been experiencing a terrible pain in his left hip. Patient states there there was bruising on his right hip but not his left hip. Patient has been taking [id number] mg and reports (-) relief. documented in this encounter Plan of Treatment Upcoming Encounters Date Type Department Care Team (Late st Contact Info) Description 09/16/2023 7:10 AM EDT Laboratory Laboratory [facility] [place] [address] [place] [address] [place], Lab Scenery [address] [place] [address] 09/16/2023 8:30 AM EDT [facility] [address] [facility] [address] Park, Chair 9 Hem Onc Scenery [address] [place] [address] 09/30/2023 7:20 AM EDT Laboratory Laboratory [facility] [place] [address] [place], [place] [address] [place], Lab Scenery [address] [place], [place] [address] 09/30/2023 8:30 AM EDT Hem/Onc Treatment Hematology/Oncology Treatment, [place] [address] [facility], [place] [address] Altagracia, Chair 4 Hem Onc Scenery [address] [place] [address] 10/14/2023 7:40 AM EDT Laboratory Laboratory [facility] [place] [address] [place], [place] [address] [place]racia, Lab Scenery [address] [place] [address] 10/14/2023 8:30 AM EDT Office Visit [facility]ematology[facility]cology [facility] [place] [address] [place] [address] Marshall Guaman MD [address] [place] [address] 10/14/2023 9:00 AM EDT [facility] [address] [facility] [address] Altagracia, Chair 3 Hem Onc Scenery [address] [place] [address] 10/24/2023 9:15 AM EDT Office Visit Dermatology [facility] [address] [place] [address] Alex Lassiter MD [address] [facility] [place] [address] 03/01/2024 9:30 AM EDT Office Visit [facility] [address] [place] [address] Shilo Cuevas MD 16 [place] [address] 04/29/2024 9:15 AM EST Office Visit Dermatology [facility] [address] [place] [address] Alex Lassiter MD [address] [facility] [address] [place] [address] Pending Results Name Type Priority Associated Diagnoses Date /Time XR HIP BILAT MIN 5 VIEWS INCLUDING AP OF PELVIS Medical Imaging Routine Hip pain, left 09/11/2023 10:09 AM EDT Scheduled Procedures Name Priority Associated [...] as of this encounter Visit Diagnoses Diagnosis Fall, subsequent encounter- Primary Rupture of right triceps tendon, subsequent encounter Hip pain, left Pain in joint, pelvic region and thigh documented in this encounter Care Teams Forensic Medical Examiner Relationship Specialty Start Date End Date Alex Prater MD [address] [place] [address] PCP - General Internal Medicine 02/07/21 documented as of this encounter
--- OUTSIDE RECORDS SUMMARY | 2023-09-20 03:02 | External Medical Summary ---
Author Name Unknown Address Unknown Organization [id number] [place] [address] Laboratory Report Ordering Provider Test Date Status APURVA TIRADO 09/16/2023 07:18:27 Final Observation Date Value Abnormality Reference (Units ) Status SYNC LEUKOCYTES IN BLOOD BY AUTOMATED COUNT 09/16/2023 07:18:27 6.15 4.00-10.80 (K/uL) Final Segs 09/16/2023 07:18:27 64.5 40.0-75.0 (%) Final Lymphs % 09/16/2023 07:18:27 20.5 18.0-42.0 (%) Final Monos 09/16/2023 07:18:27 10.4 1.0-11.0 (%) Final Eosinophils 09/16/2023 07:18:27 4.1 0.0-6.0 (%) Final Basos 09/16/2023 07:18:27 0.5 0.0-2.0 (%) Final Absolute Segs 09/16/2023 07:18:27 3.97 1.80-7.70 (K/uL) Final Lymphs, absolute 09/16/2023 07:18:27 1.26 1.00-4.80 (K/ul) Final Monos, Abs 09/16/2023 07:18:27 0.64 0.00-1.10 (K/uL) Final Eos, Abs 09/16/2023 07:18:27 0.25 0.00-0.70 (K/uL) Final Basos, Abs 09/16/2023 07:18:27 0.03 0.00-0.20 (K/uL) Final Performing Location [facility] [address]
--- OUTSIDE RECORDS SUMMARY | 2023-09-20 03:02 | External Medical Summary ---
Author Name Unknown Address Unknown Organization [id number] [place] [address] Laboratory Report Ordering Provider Test Date Status APURVA TIRADO 09/02/2023 08:16:40 Final Observation Date Value Abnormality Reference (Units ) Status WBC, Total 09/02/2023 08:16:40 5.52 4.00-10.8 0 (K/uL) Final RBC 09/02/2023 08:16:40 5.04 4.50-5.25 (M/uL) Final Hemoglobin 09/02/2023 08:16:40 15.4 14.0-16.8 (g/dL) Final HCT 09/02/2023 08:16:40 47.3 40.0-48.4 (%) Final MCV 09/02/2023 08:16:40 93.8 82.0-99.5 (fL) Final MCH 09/02/2023 08:16:40 30.6 27.0-34.0 (pg) Final MCHC 09/02/2023 08:16:40 32.6 32.0-36.0 (g/dL) Final RDW 09/02/2023 08:16:40 13.3 11.5-15.5 (%) Final Platelets 09/02/2023 08:16:40 278 140-400 (K /uL) Final MPV 09/02/2023 08:16:40 9.3 6.6-11.1 ( fL) Final Performing Location [facility] [place] [address]
--- OUTSIDE RECORDS SUMMARY | 2023-09-20 03:02 | External Medical Summary | Summary of Care ---
Author Name Unknown Organization [facility] Address [address] [facility] [place] [address] Phone [phone] Care Team Providers Care College Admissions Counselor Name Role Phone Alex Prater MD Primary Care Provider + Reason for Visit * Reason Comments Chemotherapy C97/D1 - Avelumab * Episode Based Medications (Routine) - Authorized Specialty Diagnoses / Procedures Referred By Contac t Referred To Contact Diagnoses Zainab cell carcinoma of trunk (HCC) Procedures DC INJECTION, AVELUMAB, 10 MG Marshall Guaman MD [address] [place] [address] Anc Hem/Onc [facility] DEPT CLOSED - 04/08/23 [address] [place] [address] Referral ID Status Reason Start Date Expiration Date V isits Requested Visits Authorized [id number] Authorized 03/10/2023 03/03/2024 99 99 Encounter Details Date Type Department Care Team (Latest Contact Info) Description 09/02/2023 9:30 AM EDT Hem/Onc Treatment Hematology/Oncolog y Treatment, [place] [address] [place] [address] Altagracia, Chair 2 Hem Onc Scenery [address] [place] [address] Wharton cell carcinoma of trunk (HCC)*; Encounter for antineoplastic immunotherapy Allergies No known active allergiesdocumented as of this encounter (statuses as of 09/02/2023) Medications Medication Sig Dispensed Refills Start Date End Date Status Avelumab 200 MG/10ML Intravenous Solution (Bavencio) Administer intravenously 10 mg/kg once . 0 Active Vitamin D (Ergocalciferol) 05504 UNIT Oral Capsule Take by mouth . 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 Gastroesophageal reflux disease without esophagi tis 04/03/2017 Thoracic aortic aneurysm without rupture 017 History of tobacco use 08/09/2016 History of basal cell carcinoma 11/01/2013 Overview: left gnosticist 11/04 Hyperlipidemia 12/14/2009 documented as of this [...] mRNA, LNP-s, No Pre serve, 2-Dose Series (Nonabox) 07/22/2020,07/01/2020 COVID-19, LNP-s, No Preserve , Leonardo-sucrose, Ages 12+ (Nonabox) 10/02/2021,02/23/2021 COVID-19, MRNA-LNP, 23-24, P F, 50 MCG/0.5 mL, 12 YRS AND ABOVE, IM (MODERNA-Spikevax) 03/11/2023 Covid-19, Mrna, Lnp-s, Pf, B ivalent, 30 Mcg, IM, 12 yrs and above (Nonabox) 04/03/2022 H1N1 2009 Influenza, IM 05/23/2009 PPD [...] on file documented as of this encounter Nursing Notes * Teodora Fulton RN - 09/02/2023 11:35 AM EDT Goals: Patient will remain free from injury. Possible barriers to meeting goals: ambulating with IV pole, age Stability of the patient: Moderately stable - low risk of patient condition declining or worsening Summary regarding today's goals: Met: pt remained free of harm today Patient tolerated treatment well without any acute issues or problems. Patient left facility in stable condition and denied any further needs. * Teodora Fulton RN - 09/02/2023 9:28 AM EDT Chair 9. IV inserted. Patient saw Dr. Guaman -- see OV note for details. Patient is feeling well, no acute issues or complaints. Chemotherapy/Immunotherapy agents: Avelumab Consent for chemotherapy drug treatment complete, dated, and signed? yes, date - 08/09/2019 Treatment lab parameters met? Yes Has treatment weight changed > than 10%? No Treatment preauthorized? Yes VITALS There were no vitals filed for this visit. Urine protein: N/A Patient education completed for treatment? Yes Blood transfusion consent signed and complete? NA Return appointment scheduled? Yes Patient had provider visit today? Yes - Ok to release order and treat per provider Functional Status: Functional status at today's visit: [...] symptoms or adverse side effects during treatment. Safety and Risk for Injury Patient will remain free from injury. Ensure appropriate safety devices are available. Provide and maintain safe environment. documented in this encounter Plan of Treatment Upcoming Encounters Date Type Department Care Team (Late st Contact Info) Description 09/16/2023 7:10 AM EDT Laboratory Laboratory [facility] [address] [place] [phone] Altagracia, Lab Scenery [address] [place] [address] 09/16/2023 8:30 AM EDT Hem/Onc Treatment Hematology/Oncology Treatment, [place] [address] [place] [address] Altagracia, Chair 9 Hem Onc Scenery [address] [place] [address] 09/30/2023 7:20 AM EDT Laboratory Laboratory [facility] [place] [address] [place] [address] Altagracia, Lab Scenery [address] [place] [address] 09/30/2023 8:30 AM EDT [facility] [address] [place] [address] Altagracia, Chair 4 Hem Onc Scenery [address] [place] [address] 10/14/2023 7:40 AM EDT Laboratory Laboratory [facility] [place] [address] [place] [address] Altagracia, Lab Scenery [address] [place] [address] 10/14/2023 8:30 AM EDT Office Visit Hematology/Oncology [facility] [place] [address] [place] [address] Marshall Guaman MD [address] [place] [address] 10/14/2023 9:00 AM EDT Hem/Onc Treatment Hematology/Oncology Treatment, [place] [address] [place] [address] Altagracia, Chair 3 Hem Onc Scenery [address] [place] [address] 10/24/2023 9:15 AM EDT Office Visit Dermatology [facility] [address] [place] [address] Alex Lassiter MD [address] [place] [address] 03/01/2024 9:30 AM EDT Office Visit [facility] [address] [place] [address] Shilo Cuevas MD [address] [place] [address] 04/29/2024 9:15 AM EST Office Visit Dermatology [facility] [place] [address] [place] [address] Alex Lassiter MD [address] [facility] [place] [address] Scheduled Procedures Name Priority Associated Diagnoses Date/Ti [...] as of this encounter Visit Diagnoses Diagnosis 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 Encounter for antineoplastic immunotherapy documented in this encounter Administered Medications Active Administered Medications - up to 3 most recent administrations Medication Order MAR Action Action Date Dose Rate Site diphenhydrAMINE (Benadryl) inj 50 mg 50 mg, IV Push, ONCE PRN Other, Hypersensitivity Reaction, Starting on Fri09/02/23 at 0930, Until Fri09/03/23 at 09, For 24 hours EPINEPHrine 1 MG/ML inj 0.3 mg 0.3 mg, Intramuscular, ONCE PRN Other, Hypersensitivity Reaction or Anaphylaxis, Starting on Fri09/02/23 at 0930, Until Fri09/03/23 at 0929, For 24 hours hEParin 100 UNIT/ML Lock Flush inj 500 Units 500 Units (5 mL), IV Lock, PRN Other, IV Flush, Starting on Fri09/02/23 at 0930, Until Fri09/03/23 at 0929, For 24 hours, Do not flush if lock, PICC, or central line not in place; IV infusing or unable to flush. Hydrocortisone Sod Suc (PF) (Solu-Cortef) inj 100 mg 100 mg, IV Push, ONCE PRN Other, Hypersensitivity Reaction, Starting on Fri09/02/23 at 0930, Until Fri09/03/23 at 0929, For 24 hours NSS infusion 500 mL, Intravenous, at 50 mL/hr, CONTINUOUS, Starting on Fri09/02/23 at 1045, Until Fri09/02/23 at 2044 Start Infusion 09/02/2023 9:36 AM EDT 500 mL 50 mL/hr sodium chloride 0.9 % flush central line 10 mL 10 mL, IV Push, PRN Other, IV Flush, Starting on Fri09/02/23 at 0930, Until Fri09/03/23 at 0929, For 24 hours, Do not flush if lock, PICC, or central line not in place; IV infusing or unable to flush. Inactive Administered Medications - up to 3 most recent administrations Medication Order MAR Action Action Date Dose Rate Site Acetaminophen (Tylenol) tab 650 mg 650 mg, Oral, ONCE, On Fri09/02/23 at 1045, For 1 dose, Maximum of 4 grams (4000 mg) per day. Given 09/02/2023 9:35 AM EDT 650 mg Avelumab (Bavencio) 800 mg in NSS 250 mL 800 mg, IV Piggyback, ONCE, 1 dose, On Fri09/02/23 at 1115, Administer over 60 Minutes, Use low protein binding 0.2 micron filter Start Infusion 09/02/2023 10:11 AM EDT 800 mg 290 mL/hr diphenhydrAMINE (Benadryl) cap 25 mg 25 mg, Oral, ONCE, On Fri09/02/23 at 1045, For 1 dose Given 09/02/2023 9:35 AM EDT 25 mg documented in this encounter Care Teams College Admissions Counselor Relationship Specialty Start Date End Date Alex Prater MD [address] [place] [address] PCP - General Internal Medicine 02/07/21 documented as of this encounter
--- OUTSIDE RECORDS SUMMARY | 2023-09-20 03:03 | External Medical Summary | Summary of Care ---
Author Name Unknown Organization [facility] Address [address] [facility] [address] Phone [phone] Care Team Providers Care Rn Acute Care Name Role Phone Alex Prater MD Primary Care Provider + Encounter Details Date Type Department Care Team (Late st Contact Info) Description 08/15/2023 Orders Only Hematology/Oncology, [facility] [address] [facility] [address] Marshall Guaman MD [address] [facility] [address] Allergies No known active allergiesdocumented as of this encounter (statuses as of 08/15/2023) Medications Medication Sig Dispensed Refills Start Date End Date Status Avelumab 200 MG/10ML Intravenous Solution (Bavencio) Administer intravenously 10 mg/kg once . 0 Active Vitamin D (Ergocalciferol) 69897 UNIT Oral Capsule Take by mouth . 0 Active Losartan Potassium 25 MG Oral Tablet (Cozaar)Indication s:HTN, goal below 140/90,Dyslipidemi a, goal LDL below 70,Enlarged aorta (HCC) Take 1 Tablet (25 mg) by mouth in the morning. 90 Tablet 3 05/01/2022 Active Rosuvastatin Calcium 5 MG Oral Tablet (Crestor)Indicatio ns:Dyslipidemia, goal LDL below 70 TAKE 1 TABLET BY MOUTH EVERY DAY 90 Tablet 3 08/20/2022 Active Vitamin B-12 1000 MCG Oral Tablet [...] the morning. 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 BCC (basal cell carcinoma), scalp/neck 9 [place] cell carcinoma of trunk 08/05/2018 Gastroesophageal reflux disease without esophagi tis 04/03/2017 Thoracic aortic aneurysm without rupture 017 History of tobacco use 08/09/2016 History of basal cell carcinoma 11/01/2013 Overview: left shinto 11/04 Hyperlipidemia 12/14/2009 documented as of this encounter (statuses as of 08/15/2023) Resolved Problems Problem Noted Date Diagnosed Date [...] as of this encounter (statuses as of 08/15/2023) Immunizations Name Administration Dates Next Due COVID-19 mRNA, LNP-s, No Pre serve, 2-Dose Series ([employer]) 07/22/2020,07/01/2020 COVID-19, LNP-s, No Preserve , Leonardo-sucrose, Ages 12+ (Pfizer) 10/02/2021,02/23/2021 COVID-19, MRNA-LNP, 23-24, P F, 50 MCG/0.5 mL, 12 YRS AND ABOVE, IM (MODERNA-Spikevax) 03/11/2023 Covid-19, Mrna, Lnp-s, Pf, B ivalent, 30 Mcg, IM, 12 yrs and above ([employer]) 04/03/2022 H1N1 2009 Influenza, IM 05/23/2009 PPD [...] Care Team (Late st Contact Info) Description 08/19/2023 9:30 AM EDT Imaging Radiology [address] [place] [address] 08/20/2023 8:10 AM EDT Laboratory Laboratory [facility] [place] [address] [place] [phone] [place], Lab Scene [address] [facility] [place] [address] 08/20/2023 9:00 AM EDT Hem/Onc Treatment Hematology/Oncology Treatment, [place] [address] [place] [phone] [place], Chair 10 Hem Onc Scenery [address] [place] [address] 09/02/2023 8:30 AM EDT Laboratory Laboratory [facility] [place] [address] [place], [place] [phone] [place], Lab Scenery [address] [place], [place] [address] 09/02/2023 9:00 AM EDT Office Visit Hematology/Oncology [facility] [place] [address] [place] [phone] Marshall Guaman MD [address] [place] [address] 09/02/2023 9:30 AM EDT Hem/Onc Treatment Hematology/Oncology Treatment, [place] [address] [place], [place] [phone] [place], Chair 2 Hem Onc [facility] 200 [facility] [place] [address] 10/24/2023 9:15 AM EDT Office Visit Dermatology [facility] [place] [address] [place], [place] [address] Alex Lassiter MD [address] [place], [place] [address] 03/01/2024 9:30 AM EDT Office Visit [address] [address] Shilo Cuevas MD [address] [place] [address] Scheduled Procedures Name Priority Associated Diagnoses Date/Ti me COLONOSCOPY FLEXIBLE PROXIMA L DIAGNOSTIC Recall Personal history of colonic polyps Health Maintenance Due Date Last Done Comments Depression Screening 03/08/2023 03/08/2022 COLONOSCOPY-EVERY 5 YRS AGES 18-100 03/25/2024 03/25/2019, 03/25/2019, 08/19/2013, Additional history exists GFR 08/04/2024 08/05/2023, 06/27, 06/30/2023, Additional history exists Albumin/Creatinine Ratio 09/09/2025 09/09/2022 [...] filedocumented as of this encounter Care Teams Rn Acute Care Relationship Specialty Start Date End Date Alex Prater MD 200 [place] [address] PCP - General Internal Medicine 02/07/21 documented as of this encounter
--- OUTSIDE RECORDS SUMMARY | 2023-09-20 03:03 | External Medical Summary | Summary of Care ---
Author Name Unknown Organization [facility] Address [address] [facility] [place] [address] Phone [phone] Care Team Providers Care Railroad Detective Name Role Phone Alex Prater MD Primary Care Provider + Reason for Visit * Reason Comments Chemotherapy Avelumab * Episode Based Medications (Routine) - Authorized Specialty Diagnoses / Procedures Referred By Contac t Referred To Contact Diagnoses Zainab cell carcinoma of trunk (HCC) Procedures [place] INJECTION, AVELUMAB, 10 MG Marshall Guaman MD [address] [place] [address] Anc Hem/Onc Danay Frias DEPT CLOSED - 04/08/[address] [place] [place] [address] [phone] Referral ID Status Reason Start Date Expiration Date V isits Requested Visits Authorized [id number] Authorized 03/10/2023 09/05/2023 99 99 Encounter Details Date Type Department Care Team (Latest Contact Info) Description 06/30/2023 9:30 AM EST Hem/Onc Treatment Hematology/Oncolog y Treatment, [place] [address] [place] [phone] [place], Chair 8 Hem Onc Scenery [address] [place] [address] [place] cell carcinoma of trunk (HCC)*; Encounter for antineoplastic chemotherapy Allergies No known active allergiesdocumented as of this encounter (statuses as of 08/19/2023) Medications Medication Sig Dispensed Refills Start Date End Date Status Avelumab 200 MG/10ML Intravenous Solution (Bavencio) Administer intravenously 10 mg/kg once . 0 Active Vitamin D (Ergocalciferol) 47034 UNIT Oral Capsule Take by mouth . 0 Active Losartan Potassium 25 MG Oral Tablet (Cozaar)Indicati ons:HTN, goal below 140/90,Dyslipide jen, goal LDL below 70,Enlarged aorta (HCC) Take 1 Tablet (25 mg) by mouth in the morning. 90 Tablet 3 05/01/2022 Active Vitamin B-12 1000 MCG Oral Tablet (Cyanocobalamin) Take 1 Tablet by mouth in the morning. 0 Active Sildenafil Citrate 50 MG Oral Tablet (Viagra)Indicati ons:Erectile dysfunction, unspecified erectile dysfunction type Take 1 [...] Sodium 40 MG Oral Tablet Delayed Release (Protonix)Indica tions:Gastroesop hageal reflux disease without esophagitis Take 1 Tablet by mouth in the morning. 90 Tablet 1 05/21/2023 Active Rosuvastatin Calcium 5 MG Oral Tablet (Crestor)Indicat ions:Dyslipidemi a, goal LDL below 70 TAKE 1 TABLET BY MOUTH EVERY DAY 90 Tablet 3 08/20/2022 08/18/19 24 Discontinued documented as of this encounter (statuses as of 08/19/2023) Active Problems Problem Noted Date Diagnosed Date [...] of basal cell carcinoma 11/01/2013 Overview: left denominational 11/04 Hyperlipidemia 12/14/2009 documented as of this encounter (statuses as of 08/19/2023) Resolved Problems Problem Noted Date Diagnosed Date [...] as of this encounter (statuses as of 08/19/2023) Immunizations Name Administration Dates Next Due COVID-19 mRNA, LNP-s, No Pre serve, 2-Dose Series ([employer]) 07/22/2020,07/01/2020 COVID-19, LNP-s, No Preserve , Leonardo-sucrose, Ages 12+ ([employer]) 10/02/2021,02/23/2021 COVID-19, MRNA-LNP, 23-24, P F, 50 MCG/0.5 mL, 12 YRS AND ABOVE, IM (MODERNA-Spikevax) 03/11/2023 Covid-19, Mrna, Lnp-s, Pf, B ivalent, 30 Mcg, IM, 12 yrs and above ([employer]) 04/03/2022 H1N1 2009 Influenza, IM 05/23/2009 PPD [...] as of this encounter Nursing Notes * Robert Clark, FELIBERTO - 06/30/2023 11:49 AM EST Pt infusion completed, denies any issues/symptoms at this time. IV site removed with catheter tip intact. Pt ambulated from treatment room in stable condition. Goals: Patient will remain free from injury. Possible barriers to meeting goals: IV line Stability of the patient: Moderately stable - low risk of patient condition declining or worsening Summary regarding today's goals: Met: Pt remained free from injury. * Robert Clark RN - 06/30/2023 10:08 AM EST Chair 4. IV inserted without issues into LA. Fluids infusing per orders. Pt denies any reportable symptoms at this time. Safety and Risk for Injury Patient will remain free from injury. Ensure appropriate safety devices are available. Provide and maintain safe environment. Functional status at today's visit: Restricted in [...] symptoms or adverse side effects during treatment. Chemo agents Avelumab Appetite normal Nausea/Vomiting none Diarrhea none Constipation none Mucositis none Fatigue minor Bleeding none Infection none Rash none Numbness tingling none Pain none Radiation none ABN Labs: None Alt in Tx: None Return in -- TBD pt is traveling to [facility] on 07/12, next infusion due 07/14. Pt is aware and will send Naartjie message to schedule his next infusion on his return home. documented in this encounter Plan of Treatment Upcoming Encounters Date Type Department Care Team (Late st Contact Info) Description 08/20/2023 8:10 AM EDT Laboratory Laboratory [place] [facility] [address] [place] [phone] [place], Lab Scenery [address] [place] [address] 08/20/2023 9:00 AM EDT [facility] 200 [facility], [place] [phone] [place], Chair 10 Hem On[address] [place], [place] [address] 09/02/2023 8:30 AM EDT Laboratory Laboratory [facility] [place] 200 [address] [place] [phone] [place], Lab [address] [place] [address] 09/02/2023 9:00 AM EDT Office Visit Hematology/Oncology [facility] [place] 200 [facility] [place] [phone] Marshall Guaman MD 200 [facility] [place] [address] 09/02/2023 9:30 AM EDT Hem[facility] 200 [facility], [place] [phone] [place], Chair 2 Hem Onc [address] [place], [place] [address] 10/24/2023 9:15 AM EDT Office Visit Dermatology [facility] [place] 200 [facility] [place], [place] [address] Alex Lassiter MD 200 [facility] [place], [place] [address] 03/01/2024 9:30 AM EDT Office Visit [facility] Eye [address] [address] Shilo Cuevas MD 16 [place], [place] [phone] Scheduled Procedures Name Priority Associated Diagnoses Date/Ti [...] as of this encounter Visit Diagnoses Diagnosis 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 Given 06/30/2023 9:53 AM EST 650 mg Avelumab (Bavencio) 800 mg in NSS 250 mL 800 mg, IV Piggyback, ONCE, 1 dose, On Fri06/30/23 at 1130, Administer over 60 Minutes, Use low protein binding 0.2 micron filter Start Infusion 06/30/2023 10:18 AM EST 800 mg 290 mL/hr diphenhydrAMINE (Benadryl) cap 25 mg 25 mg, Oral, ONCE, On Fri06/30/23 at 1100, For 1 dose Given 06/30/2023 9:53 AM EST 25 mg NSS infusion 500 mL, Intravenous, at 50 mL/hr, CONTINUOUS, Starting on Fri06/30/23 at 1100, Until Fri06/30/23 at 1552 Start Infusion 06/30/2023 9:53 AM EST 500 mL 50 mL/hr documented in this encounter Care Teams Railroad Detective Relationship Specialty Start Date End Date Alex Prater MD 200 [place] [address] PCP - General Internal Medicine 02/07/21 documented as of this encounter
--- OUTSIDE RECORDS SUMMARY | 2023-09-20 03:03 | External Medical Summary | Summary of Care ---
Author Name Unknown Organization [facility] Address [address] [facility] [place] [address] Phone [phone] Care Team Providers Care Stitching Department Supervisor Name Role Phone Alex Prater MD Primary Care Provider + Reason for Visit * Reason Comments Chemotherapy Avelumab * Episode Based Medications (Routine) - Authorized Specialty Diagnoses / Procedures Referred By Contac t Referred To Contact Diagnoses Zainab cell carcinoma of trunk (HCC) Procedures [place] INJECTION, AVELUMAB, 10 MG Marshall Guaman MD [address] [place] [address] Anc Hem/Onc Danay Frias DEPT CLOSED - 04/08/[address] [phone] Referral ID Status Reason Start Date Expiration Date V isits Requested Visits Authorized [id number] Authorized 03/10/2023 09/05/2023 99 99 Encounter Details Date Type Department Care Team (Latest Contact Info) Description 06/30/2023 9:30 AM EST Hem/Onc Treatment Hematology/Oncolog y Treatment, [place] [address] [place] [phone] [place], Chair 8 Hem Onc Scenery [address] [place] [address] [place] cell carcinoma of trunk (HCC)*; Encounter for antineoplastic chemotherapy Allergies No known active allergiesdocumented as of this encounter (statuses as of 08/19/2023) Medications Medication Sig Dispensed Refills Start Date End Date Status Avelumab 200 MG/10ML Intravenous Solution (Bavencio) Administer intravenously 10 mg/kg once . 0 Active Vitamin D (Ergocalciferol) 97498 UNIT Oral Capsule Take by mouth . [...] of basal cell carcinoma 11/01/2013 Overview: left voodoo 11/04 Hyperlipidemia 12/14/2009 documented as of this [...] mRNA, LNP-s, No Pre serve, 2-Dose Series ([employer]) 07/22/2020,07/01/2020 COVID-19, LNP-s, No Preserve , Leonardo-sucrose, Ages 12+ ([employer]) 10/02/2021,02/23/2021 COVID-19, MRNA-LNP, 23-24, P F, 50 MCG/0.5 mL, 12 YRS AND ABOVE, IM (MODERNA-Spikevax) 03/11/2023 Covid-19, Mrna, Lnp-s, Pf, B ivalent, 30 Mcg, IM, 12 yrs and above ([employer]) 04/03/2022 H1N1 2009 Influenza, IM 05/23/2009 PPD [...] in -- TBD pt is traveling to [facility] on 07/12, next infusion due 07/14. Pt is aware and will send [employer] message to schedule his next infusion on his return home. documented in this encounter Plan of Treatment Upcoming Encounters Date Type Department Care Team (Late st Contact Info) Description 08/20/2023 8:10 AM EDT Laboratory Laboratory [place] [facility] [address] [place] [phone] [place], Lab Scenery [address] [place] [address] 08/20/2023 9:00 AM EDT [facility] 200 [facility], [place] [phone] [place]ia, Chair 10 Hem Onc [address] [place], [place] [address] 09/02/2023 8:30 AM EDT Laboratory Laboratory [facility] [place] 200 [address] [place] [phone] [place], Lab [address] [place] [address] 09/02/2023 9:00 AM EDT Office Visit Hematology/Oncology [facility] [place] [address] [facility] [place] [phone] Marshall Guaman MD [address] [facility] [place] [address] 09/02/2023 9:30 AM EDT [facility] 200 [facility], [place] [phone] Al[place], Chair 2 Hem Onc [address] [place], [place] [address] 10/24/2023 9:15 AM EDT Office Visit Dermatology [facility] [place] [address] [facility] [place], [place] [address] Alex Lassiter MD [address] [facility] [place], [place] [address] 03/01/2024 9:30 AM EDT Office Visit 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
--- OUTSIDE RECORDS SUMMARY | 2023-09-20 03:03 | External Medical Summary ---
Author Name Unknown Address Unknown Organization K01:[facility] [place] - [address] [place] [address] Laboratory Report Ordering Provider Test Date Status APURVA TIRADO 08/20/2023 08:25:21 Final Observation Date Value Abnormality Reference (Units ) Status TSH 08/20/2023 08:25:21 1.62 0.27-4.20 (uIU/mL) Final Performing Location [facility] [place] - [address] [place] [address]
--- OUTSIDE RECORDS SUMMARY | 2023-09-20 03:03 | External Medical Summary | Summary of Care ---
Author Name Unknown Organization [facility] Address [address] [facility] [address] Phone [phone] Care Team Providers Care Frame Opener Name Role Phone Alex Prater MD Primary Care Provider + Encounter Details Date Type Department Care Team (Late st Contact Info) Description 08/28/2023 Orders Only Hematology/Oncology, [facility] [address] [facility] [address] Marshall Guaman MD 200 [facility] [address] Allergies No known active allergiesdocumented as of this encounter (statuses as of 08/28/2023) Medications Medication Sig Dispensed Refills Start Date End Date Status Avelumab 200 MG/10ML Intravenous Solution (Bavencio) Administer intravenously 10 mg/kg once . 0 Active Vitamin D (Ergocalciferol) 37776 UNIT Oral Capsule Take by mouth . 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/2018 Gastroesophageal reflux disease without esophagi tis 04/03/2017 Thoracic aortic aneurysm without rupture 017 History of tobacco use 08/09/2016 History of basal cell carcinoma 11/01/2013 Overview: left zoroastrian 11/04 Hyperlipidemia 12/14/2009 documented as of this encounter (statuses as of 08/28/2023) Resolved Problems Problem Noted Date Diagnosed Date [...] as of this encounter (statuses as of 08/28/2023) Immunizations Name Administration Dates Next Due COVID-19 mRNA, LNP-s, No Pre serve, 2-Dose Series ([employer]) 07/22/2020,07/01/2020 COVID-19, LNP-s, No Preserve , Leonardo-sucrose, Ages 12+ (Pfizer) 10/02/2021,02/23/2021 COVID-19, MRNA-LNP, 23-24, P F, 50 MCG/0.5 mL, 12 YRS AND ABOVE, IM (MODERNA-Spikevax) 03/11/2023 Covid-19, Mrna, Lnp-s, Pf, B ivalent, 30 Mcg, IM, 12 yrs and above ([employer]) 04/03/2022 H1N1 2009 Influenza, IM 05/23/2009 PPD [...] Description 09/02/2023 8:30 AM EDT Laboratory Laboratory [facility] [place] [address] [place] [phone] [place]ia Lab [place] [address] [place] [address] 09/02/2023 9:00 AM EDT Office Visit Hematology/Oncology [facility] [place] [address] [place] [phone] Marshall Guaman MD [address] [place] [address] [address] 09/02/2023 9:30 AM EDT Hem/Onc Treatment Hematology/Oncology Treatment, [place] [address] [place] [phone] [place]ia, Chair 2 Hem Onc [place] [address] [place] [address] 10/24/2023 9:15 AM EDT Office Visit Dermatology [facility] 200 [facility] [place] [address] Alex Lassiter MD 200 [facility] [place] [address] 03/01/2024 9:30 AM EDT Office Visit [facility] 16 [place] [address] Shilo Cuevas MD 16 [place] [address] Scheduled Procedures Name Priority Associated Diagnoses Date/Ti [...] filedocumented as of this encounter Care Teams Frame Opener Relationship Specialty Start Date End Date Alex Prater MD 200 [place] [address] PCP - General Internal Medicine 02/07/21 documented as of this encounter
--- OUTSIDE RECORDS SUMMARY | 2023-09-20 03:03 | External Medical Summary | Summary of Care ---
Author Name Unknown Organization [facility] Address [address] [facility] [address] Phone [phone] Care Team Providers Care Non Cdl Driver Name Role Phone Alex Prater MD Primary Care Provider + Reason for Visit * Reason Comments Outpatient Testing Encounter Details Date Type Department Care Team (Late st Contact Info) Description 08/20/2023 8:10 AM EDT Laboratory Laboratory [facility] [address] [place] [phone] [facility] Lab Scenery [address] [place] [address] [place] cell carcinoma of trunk (HCC) Allergies No known active allergiesdocumented as of this encounter (statuses as of 08/20/2023) Medications Medication Sig Dispensed Refills Start Date End Date Status Avelumab 200 MG/10ML Intravenous Solution (Bavencio) Administer intravenously 10 mg/kg once . 0 Active Vitamin D (Ergocalciferol) 17815 UNIT Oral Capsule Take by mouth . 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 08/05/2018 Gastroesophageal reflux disease without esophagi tis 04/03/2017 Thoracic aortic aneurysm without rupture 017 History of tobacco use 08/09/2016 History of basal cell carcinoma 11/01/2013 Overview: left catholic 11/04 Hyperlipidemia 12/14/2009 documented as of this encounter (statuses as of 08/20/2023) Resolved Problems Problem Noted Date Diagnosed Date [...] as of this encounter (statuses as of 08/20/2023) Immunizations Name Administration Dates Next Due COVID-19 mRNA, LNP-s, No Pre serve, 2-Dose Series (LegalFácil) 07/22/2020,07/01/2020 COVID-19, LNP-s, No Preserve , Leonardo-sucrose, Ages 12+ (Pfizer) 10/02/2021,02/23/2021 COVID-19, MRNA-LNP, 23-24, P F, 50 MCG/0.5 mL, 12 YRS AND ABOVE, IM (MODERNA-Spikevax) 03/11/2023 Covid-19, Mrna, Lnp-s, Pf, B ivalent, 30 Mcg, IM, 12 yrs and above (LegalFácil) 04/03/2022 H1N1 2009 Influenza, IM 05/23/2009 PPD [...] Team (Late st Contact Info) Description 08/20/2023 9:00 AM EDT Hem/Onc Treatment Hematology/Oncology Treatment, [place] [address] [place] [phone] [place], Chair 10 Hem Onc [facility] [address] [place] [address] Arrived 09/02/2023 8:30 AM EDT Laboratory Laboratory [facility] [place] [place] [address] [place] [phone] [place] [address] 09/02/2023 9:00 AM EDT Office Visit Hematology/Oncology [facility] [place] [address] [place] [phone] Marshall Guaman MD [address] [place] [address] 09/02/2023 9:30 AM EDT Hem/Onc Treatment Hematology/Oncology Treatment, [place] [address] [place] [phone] [place], Chair 2 Hem Onc [place] [address] [place] [address] 10/24/2023 9:15 AM EDT [facility] [address] [place] [address] Alex Lassiter MD [address] [place] [address] 03/01/2024 9:30 AM EDT Office Visit [address] [address] Shilo Cuevas MD [address] [place] [phone] Pending Results Name Type Priority Associated Diagnoses Date /Time COMPREHENSIVE METABOLIC PANEL Lab STAT [place] cell carcinoma of trunk (HCC) 08/20/2023 8:25 AM EDT TSH WITH FREE T4 IF INDICATED Lab STAT [place] cell carcinoma of trunk (HCC) 08/20/2023 8:25 AM EDT Scheduled Procedures Name Priority Associated [...] Date/Time Associated Diagnosis Comments DIFFERENTIAL, AUTOMATED STAT 08/20/2023 8:25 AM EDT [place] cell carcinoma of trunk (HCC) CBC STAT 08/20/2023 8:25 AM EDT [place] cell carcinoma of trunk (HCC) CBC STAT 08/20/2023 8:25 AM EDT Zainab cell carcinoma of trunk (HCC) documented in this encounter Results * (ABNORMAL) DIFFERENTIAL, AUTOMATED (08/20/2023 8:25 AM EDT) WBC 5.46 4.00 - 10.80 K/uL 08/20/2023 8:30 AM EDT [facility] 56-02 Neutrophils % 61.0 40.0 - 75.0 % 08/20/2023 8:30 AM EDT [facility] 56-02 Lymphocytes % 23.3 18.0 - 42.0 % 08/20/2023 8:30 AM EDT [facility] 56-02 Monocytes % 11.5(H) 1.0 - 11.0 % 08/20/2023 8:30 AM EDT [facility] 56-02 Eosinophils % 3.8 0.0 - 6.0 % 08/20/2023 8:30 AM EDT [facility] 56-02 Basophils % 0.4 0.0 - 2.0 % 08/20/2023 8:30 AM EDT [facility] Absolute Neutrophils 3.33 1.80 - 7.70 K/uL 08/20/2023 8:30 AM EDT [facility] Absolute Lymphocytes 1.27 1.00 - 4.80 K/ul 08/20/2023 8:30 AM EDT [facility] Absolute Monocytes 0.63 0.00 - 1.10 K/uL 08/20/2023 8:30 AM EDT [facility] Absolute Eosinophils 0.21 0.00 - 0.70 K/uL 08/20/2023 8:30 AM EDT [facility] Absolute Basophils 0.02 0.00 - 0.20 K/uL 08/20/2023 8:30 AM EDT [facility] Blood Venous blood specimen / Unknown Venipuncture / Unknown 08/20/2023 8:25 AM EDT 08/20/2023 8:25 AM EDT Marshall Guaman MD LAB BLOOD ORDERA BLES [facility] [address] [place] [address] * CBC (08/20/2023 8:25 AM EDT) WBC 5.46 4.00 - 10.80 K/uL 08/20/2023 8:30 AM EDT [facility] RBC 4.77 4.50 - 5.25 M/uL 08/20/2023 8:30 AM EDT [facility] HGB 14.7 14.0 - 16.8 g/dL 08/20/2023 8:30 AM EDT [facility] HCT 45.0 40.0 - 48.4 % 08/20/2023 8:30 AM EDT [facility] MCV 94.3 82.0 - 99.5 fL 08/20/2023 8:30 AM EDT [facility] MCH 30.8 27.0 - 34.0 pg 08/20/2023 8:30 AM EDT [facility] MCHC 32.7 32.0 - 36.0 g/dL 08/20/2023 8:30 AM EDT [facility] 56 RDW 12.9 11.5 - 15.5 % 08/20/2023 8:30 AM EDT [facility] PLT 270 140 - 400 K/uL 08/20/2023 8:30 AM EDT [facility] MPV 9.0 6.6 - 11.1 fL 08/20/2023 8:30 AM EDT [facility] Blood Venous blood specimen / Unknown Venipuncture / Unknown 08/20/2023 8:25 AM EDT 08/20/2023 8:25 AM EDT Marshall Guaman MD LAB BLOOD ORDERA BLES Performing Organization Address City/State/[facility] Co de Phone Number [facility] [address] [facility] [address] documented in this encounter Visit Diagnoses Diagnosis [place] cell carcinoma of trunk (HCC) Zainab cell carcinoma of the trunk documented in this encounter Care Teams Non Cdl Driver Relationship Specialty Start Date End Date Alex Prater MD [address] [facility] [address] PCP - General Internal Medicine 02/07/21 documented as of this encounter
--- OUTSIDE RECORDS SUMMARY | 2023-09-20 03:03 | External Medical Summary ---
Author Name Unknown Address Unknown Organization K[facility] [place] [address] Laboratory Report Ordering Provider Test Date Status APURVA TIRADO 08/20/2023 08:25:21 Final Observation Date Value Abnormality Reference (Units ) Status SYNC LEUKOCYTES IN BLOOD BY AUTOMATED COUNT 08/20/2023 08:25:21 5.46 4.00-10.80 (K/uL) Final Segs 08/20/2023 08:25:21 61.0 40.0-75.0 (%) Final Lymphs % 08/20/2023 08:25:21 23.3 18.0-42.0 (%) Final Monos 08/20/2023 08:25:21 11.5 Above high normal 1.0-11.0 (%) Final Eosinophils 08/20/2023 08:25:21 3.8 0.0-6.0 (%) Final Basos 08/20/2023 08:25:21 0.4 0.0-2.0 (%) Final Absolute Segs 08/20/2023 08:25:21 3.33 1.80-7.70 (K/uL) Final Lymphs, absolute 08/20/2023 08:25:21 1.27 1.00-4.80 (K/ul) Final Monos, Abs 08/20/2023 08:25:21 0.63 0.00-1.10 (K/uL) Final Eos, Abs 08/20/2023 08:25:21 0.21 0.00-0.70 (K/uL) Final Basos, Abs 08/20/2023 08:25:21 0.02 0.00-0.20 (K/uL) Final Performing Location [facility] [place] [address]
--- OUTSIDE RECORDS SUMMARY | 2023-09-20 03:03 | External Medical Summary | Summary of Care ---
Author Name Unknown Organization [facility] Address [address] [facility] [place] [address] Phone [phone] Care Team Providers Care Wireless Telegrapher Name Role Phone Alex Prater MD Primary Care Provider + Reason for Visit * Reason Comments Chemotherapy Avelumab * Episode Based Medications (Routine) - Authorized Specialty Diagnoses / Procedures Referred By Contac t Referred To Contact Diagnoses Zaniab cell carcinoma of trunk (HCC) Procedures AL INJECTION, AVELUMAB, 10 MG Marshall Guaman MD [address] [place] [address] Anc Hem/Onc [facility] DEPT CLOSED - 04/08/[address] [place] [address] [phone] Referral ID Status Reason Start Date Expiration Date V isits Requested Visits Authorized [id number] Authorized 03/10/2023 09/05/2023 99 99 Encounter Details Date Type Department Care Team (Latest Contact Info) Description 08/20/2023 9:00 AM EDT Hem/Onc Treatment Hematology/Oncolog y Treatment, [place] [address] [place] [phone] Al[place]ia, Chair 10 Hem Onc [address] [place] [address] [address] Zainab cell carcinoma of trunk (HCC)*; Encounter for antineoplastic chemotherapy Allergies No known active allergiesdocumented as of this encounter (statuses as of 08/20/2023) Medications Medication Sig Dispensed Refills Start Date End Date Status Avelumab 200 MG/10ML Intravenous Solution (Bavencio) Administer intravenously 10 mg/kg once . 0 Active Vitamin D (Ergocalciferol) 11906 UNIT Oral Capsule Take by mouth . 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 08/05/2018 Gastroesophageal reflux disease without esophagi tis 04/03/2017 Thoracic aortic aneurysm without rupture 017 History of tobacco use 08/09/2016 History of basal cell carcinoma 11/01/2013 Overview: left bahai 11/04 Hyperlipidemia 12/14/2009 documented as of this [...] mRNA, LNP-s, No Pre serve, 2-Dose Series ([employer]) 07/22/2020,07/01/2020 COVID-19, LNP-s, No Preserve , Leonardo-sucrose, Ages 12+ (Pfizer) 10/02/2021,02/23/2021 COVID-19, MRNA-LNP, 23-24, P F, 50 MCG/0.5 mL, 12 YRS AND ABOVE, IM (MODERNA-Spikevax) 03/11/2023 Covid-19, Mrna, Lnp-s, Pf, B ivalent, 30 Mcg, IM, 12 yrs and above (HealthUnlocked) 04/03/2022 H1N1 2009 Influenza, IM 05/23/2009 PPD [...] Sign Reading Time Taken Comments Blood Pressure 147/81 08/20/2023 9:17 AM EDT Pulse 76 08/20/2023 9:17 AM EDT Temperature 36.8 C (98.2 F) 08/20/2023 9:17 AM ED T Respiratory Rate 18 08/20/2023 9:17 AM EDT Oxygen Saturation 95% 08/20/2023 9:17 AM EDT Inhaled Oxygen Concentration - - Weight - - Height - - Body Mass Index - - documented in this encounter Nursing Notes * Radha Muniz RN - 08/20/2023 1:17 PM EDT Pt completed treatment without issues. IV removed by Ruby Iraheta LPN. Goals: Pt will remain free from injury. Possible barriers to meeting goals: pt is a high fall risk Stability of the patient: Moderately stable - low risk of patient condition declining or worsening Summary regarding today's goals: Met: Pt remained free from injury during treatment today. Discharged in stable condition. * Radha Muniz RN - 08/20/2023 9:30 AM EDT Chair 9 Chemotherapy/Immunotherapy agents: Avelumab Consent for chemotherapy drug treatment complete, dated, and signed? yes, date - 08/09/19 Treatment lab parameters met? Yes Has treatment weight changed > than 10%? No Treatment preauthorized? Yes VITALS Filed Vitals: 08/20/23 0917 BP: 147/81 Pulse: 76 Resp: 18 Temp: 36.8 C (98.2 F) SpO2: 95% Urine protein: N/A Patient education completed for treatment? Yes Blood transfusion consent signed and complete? NA Return appointment scheduled? Yes Patient had provider visit today? No - If no provider visit must complete Pretreatment Assessment PRE-TREATMENT ASSESSMENT: NEURO: denies symptoms CV/RESP: denies symptoms GI/: denies symptoms OTHER: denies any additional symptoms PAIN: 0 PIV established; NSS infusing. Pt reported a fall at home this past week, down stone steps in his back yard. Pt reports a detached tendon in his RUE, but only experiences pain when moving affected arm in certain ways. Pt states he is otherwise okay from the fall. Pt was evaluated in the ED s/p fall, and is scheduled to follow up with ortho today. Safety and Risk for Injury Patient will remain free from injury. Ensure appropriate safety devices are available. Provide and maintain safe environment. Functional Status: Functional status at today's visit: Fully active, able to carry on all pre-disease performance without restriction The drug name, dose, infusion volume, rate and route of administration, expiration date and time, appearance and physical integrity of the drug and rate set on the pump and sequencing of drug administration (as applicable) were verified by me and second sign-in RN. Patient was assessed for symptoms or adverse side effects during treatment. documented in this encounter Plan of Treatment Upcoming Encounters Date Type Department Care Team (Late st Contact Info) Description 09/02/2023 8:30 AM EDT Laboratory Laboratory [facility] 200 [facility] [place] [phone] [place], Lab [address] [place] [address] 09/02/2023 9:00 AM EDT Office Visit Hematology/Oncology [address] [place] [phone] Marshall Guaman MD [address] [place] [address] [place] [address] 09/02/2023 9:30 AM EDT [facility] [address] [facility] [address] [place] [phone] [place], Chair 2 Hem Onc [address] [place] [address] 10/24/2023 9:15 AM EDT Office Visit Dermatology [facility] [place] 200 [facility] [place] [address] Alex Lassiter MD [address] [place] [address] [place] [address] 03/01/2024 9:30 AM EDT Office Visit [address] [address] Shilo Cuevas MD [address] [place] [address] Scheduled Procedures Name Priority Associated Diagnoses Date/Ti [...] as of this encounter Visit Diagnoses Diagnosis [place] cell carcinoma of trunk (HCC)- Primary Zainab cell carcinoma of the trunk Encounter for antineoplastic chemotherapy documented in this encounter Administered Medications Active Administered Medications - up to 3 most recent administrations Medication Order MAR Action Action Date Dose Rate Site diphenhydrAMINE (Benadryl) inj 50 mg 50 mg, IV Push, ONCE PRN Other, Hypersensitivity Reaction, Starting on Fri08/20/23 at 0915, Until Sarah 08/21/23 at 0914, For 24 hours EPINEPHrine 1 MG/ML inj 0.3 mg 0.3 mg, Intramuscular, ONCE PRN Other, Hypersensitivity Reaction or Anaphylaxis, Starting on Fri08/20/23 at 0915, Until Fri08/21/23 at 0914, For 24 hours hEParin 100 UNIT/ML Lock Flush inj 500 Units 500 Units (5 mL), IV Lock, PRN Other, IV Flush, Starting on Fri08/20/23 at 0915, Until Fri08/21/23 at 0914, For 24 hours, Do not flush if lock, PICC, or central line not in place; IV infusing or unable to flush. Hydrocortisone Sod Suc (PF) (Solu-Cortef) inj 100 mg 100 mg, IV Push, ONCE PRN Other, Hypersensitivity Reaction, Starting on Fri08/20/23 at 0915, Until Fri08/21/23 at 0914, For 24 hours NSS infusion 500 mL, Intravenous, at 50 mL/hr, CONTINUOUS, Starting on Fri08/20/23 at 1030, Until Fri08/20/23 at 2028 Start Infusion 08/20/2023 9:25 AM EDT 500 mL 50 mL/hr sodium chloride 0.9 % flush central line 10 mL 10 mL, IV Push, PRN Other, IV Flush, Starting on Fri08/20/23 at 0915, Until Fri08/21/23 at 0914, For 24 hours, Do not flush if lock, PICC, or central line not in place; IV infusing or unable to flush. Inactive Administered Medications - up to 3 most recent administrations Medication Order MAR Action Action Date Dose Rate Site Acetaminophen (Tylenol) tab 650 mg 650 mg, Oral, ONCE, On Fri08/20/23 at 1030, For 1 dose, Maximum of 4 grams (4000 mg) per day. Given 08/20/2023 9:35 AM EDT 650 mg Avelumab (Bavencio) 800 mg in NSS 250 mL 800 mg, IV Piggyback, ONCE, 1 dose, On Fri08/20/23 at 1100, Administer over 60 Minutes, Use low protein binding 0.2 micron filter Start Infusion 08/20/2023 9:46 AM EDT 800 mg 290 mL/hr diphenhydrAMINE (Benadryl) cap 25 mg 25 mg, Oral, ONCE, On Fri08/20/23 at 1030, For 1 dose Given 08/20/2023 9:35 AM EDT 25 mg documented in this encounter Care Teams Wireless Telegrapher Relationship Specialty Start Date End Date Alex Prater MD 200 [place] [address] PCP - General Internal Medicine 02/07/21 documented as of this encounter
--- OUTSIDE RECORDS SUMMARY | 2023-09-20 03:03 | External Medical Summary ---
Author Name Unknown Address Unknown Organization K09:[facility] [place] [address] Laboratory Report Ordering Provider Test Date Status APURVA TIRADO 08/20/2023 08:25:21 Final Observation Date Value Abnormality Reference (Units ) Status WBC, Total 08/20/2023 08:25:21 5.46 4.00-10.8 0 (K/uL) Final RBC 08/20/2023 08:25:21 4.77 4.50-5.25 (M/uL) Final Hemoglobin 08/20/2023 08:25:21 14.7 14.0-16.8 (g/dL) Final HCT 08/20/2023 08:25:21 45.0 40.0-48.4 (%) Final MCV 08/20/2023 08:25:21 94.3 82.0-99.5 (fL) Final MCH 08/20/2023 08:25:21 30.8 27.0-34.0 (pg) Final MCHC 08/20/2023 08:25:21 32.7 32.0-36.0 (g/dL) Final RDW 08/20/2023 08:25:21 12.9 11.5-15.5 (%) Final Platelets 08/20/2023 08:25:21 270 140-400 (K /uL) Final MPV 08/20/2023 08:25:21 9.0 6.6-11.1 ( fL) Final Performing Location [facility] [place] [address]
--- OUTSIDE RECORDS SUMMARY | 2023-09-20 03:03 | External Medical Summary | Summary of Care ---
Author Name Unknown Organization [facility] Address [address] [facility] [place] [address] Phone [phone] Care Team Providers Care Airbrush Artist Technical Name Role Phone Alex Prater MD Primary Care Provider + Reason for Visit * Reason Comments eRx-Medication Refill Encounter Details Date Type Department Care Team (Late st Contact Info) Description 08/16/2023 Refill Cardiology, [facility] [address] [place] [address] Jessica Owen DO [address] [place] [address] Dyslipidemia, goal LDL below 70 Allergies No known active allergiesdocumented as of this encounter (statuses as of 08/18/2023) Medications Medication Sig Dispensed Refills Start Date End Date Status Avelumab 200 MG/10ML Intravenous Solution (Bavencio) Administer intravenously 10 mg/kg once . 0 Active Vitamin D (Ergocalciferol) 81165 UNIT Oral Capsule Take by mouth . 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: left latter-day 6/12 Hyperlipidemia 12/14/2009 documented as of this encounter (statuses as of 08/18/2023) Resolved Problems Problem Noted Date Diagnosed Date [...] as of this encounter (statuses as of 08/18/2023) Immunizations Name Administration Dates Next Due COVID-19 mRNA, LNP-s, No Pre serve, 2-Dose Series ([employer]) 07/22/2020,07/01/2020 COVID-19, LNP-s, No Preserve , Leonardo-sucrose, Ages 12+ ([employer]stream) 10/02/2021,02/23/2021 COVID-19, MRNA-LNP, 23-24, P F, 50 MCG/0.5 mL, 12 YRS AND ABOVE, IM (MODERNA-Spikevax) 03/11/2023 Covid-19, Mrna, Lnp-s, Pf, B ivalent, 30 Mcg, IM, 12 yrs and above ([employer]stream) 04/03/2022 H1N1 2009 Influenza, IM 05/23/2009 PPD [...] on file documented as of this encounter Miscellaneous Notes * Telephone Encounter - Jessica Owen DO - 08/18/2023 10:38 AM EDT Signed Prescriptions: Disp Refills Rosuvastatin Calcium 5 MG Oral Tablet (Cre*90 Tab*3 Sig: TAKE 1 TABLET BY MOUTH EVERY DAY Authorizing Provider: JESSICA OWEN * Telephone Encounter - Maureen Hendrix CMA - 08/18/2023 10:00 AM EDTPending Prescriptions: Disp Refills Rosuvastatin Calcium 5 MG Oral Tablet [Pha*90 Tab*3 Sig: TAKE 1 TABLET BY MOUTH EVERY DAY * Telephone Encounter - Maureen Hendrix CMA - 08/18/2023 10:00 AM EDT Did you pend patient's preferred pharmacy and medication before forwarding?yes Pharmacy: [facility] [id number] [place] Pending Prescriptions: Disp Refills Rosuvastatin Calcium 5 MG Oral Tablet (Cr*90 Tab*3 Sig: TAKE 1 TABLET BY MOUTH EVERY DAY Last Visit: 12/25/2022 (in office), 10/19/2019 (telemedicine) Next Visit: Visit date not found If no future appointments scheduled, and last appointment is greater than a year ago, please schedule patient for a follow-up appointment Last date the medication was ordered: 08-20-2022 Is this request for a controlled substance?No Urine Drug Screen:No results found. However, due to the size of the patient record, not all encounters were searched. Please check Results Review for a complete set of results. Patient Phone Numbers Labs: Lab Results Component Value Date/Time CREAT 0.9 08/05/2023 08:26 AM CREAT 1.0 06/19/2020 07:22 AM POTASSIUM 4.5 08/05/2023 08:26 AM POTASSIUM 4.1 06/19/2020 07:22 AM TSH 1.38 08/05/2023 08:26 AM TSH 2.07 06/19/2020 07:22 AM LDLCALC 74 09/06/2022 08:01 AM LDLCALC 138 (H) 10/13/2017 08:33 AM LDLDIRECT 79 03/19/2021 08:23 AM LDLDIRECT NOT APPLICABLE 10/13/2017 08:33 AM ALT 14 08/05/2023 08:26 AM ALT 13 06/19/2020 07:22 AM HGBA1C 5.6 09/06/2022 08:01 AM documented in this encounter Plan of Treatment Upcoming Encounters Date Type Department Care Team (Late st Contact Info) Description 08/19/2023 9:30 AM EDT Imaging Radiology [address], [place] 132 [facility] [place] [address] 08/20/2023 8:10 AM EDT Laboratory Laboratory [facility] [place] [address] [place] [phone] [place], Lab [address] [place] [address] 08/20/2023 9:00 AM EDT [facility] 200 [facility] [place] [phone] Al[place], Chair 10 Hem Onc [place] [address] [place] [address] 09/02/2023 8:30 AM EDT Laboratory Laboratory [facility] [place] [address] [place] [phone] [place], Lab Scenery [address] [facility] [place] [address] 09/02/2023 9:00 AM EDT Office Visit Hematology/Oncology [facility] [place] [address] [place] [phone] Marshall Guaman MD [address] [place] [address] 09/02/2023 9:30 AM EDT Hem/Onc Treatment Hematology/Oncology Treatment, [place] 200 [facility] [place] [phone] Al[place], Chair 2 Hem Onc [facility] 200 [facility] [place] [address] 10/24/2023 9:15 AM EDT Office Visit Dermatology [facility] [place] 200 [facility] [place] [address] Alex Lassiter MD 200 [facility] [place] [address] 03/01/2024 9:30 AM EDT Office Visit [address] [address] Shilo Cuevas MD [address] [place] [address] Scheduled Procedures Name Priority Associated Diagnoses Date/Ti [...] as of this encounter Visit Diagnoses Diagnosis Dyslipidemia, goal LDL below 70 Other and unspecified hyperlipidemia documented in this encounter Care Teams Airbrush Artist Technical Relationship Specialty Start Date End Date Alex Prater MD 200 [place] [address] PCP - General Internal Medicine 02/07/21 documented as of this encounter
== END 2023-09-19 13:23 | disposition home or self-care (01) ==
LOC: EDINP 16:50 → ED 16:50 → EDINP 09-19 04:07
DX: Z87.891 Personal history of nicotine dependence; R06.02 Shortness of breath; Z85.46 Personal history of malignant neoplasm of prostate; K21.9 Gastro-esophageal reflux disease without esophagitis; E78.5 Hyperlipidemia, unspecified; R42 Dizziness and giddiness; C7B.1 Secondary Merkel cell carcinoma; Z79.620 Long term (current) use of immunosuppressive biologic; Z79.899 Other long term (current) drug therapy; R79.89 Other specified abnormal findings of blood chemistry; I10 Essential (primary) hypertension; Z88.7 Allergy status to serum and vaccine